=== PATIENT | male | born 1945 | race Caucasian/White ===

== ENCOUNTER 2017-04-11 23:21 | Emergency (ER) | payer SELFPAY, BC | END 2017-04-12 03:01 | disposition left against medical advice (07) | LOC: FTE 23:21 | DX: Z53.21 Procedure and treatment not carried out due to patient leaving prior to being seen by health care provider (principal) ==

== ENCOUNTER 2017-09-14 20:09 | Emergency (ER) | payer BC ==
[2017-09-14] MEDS: morphine 4 MG/ML VIAL IV (21:14)
[2017-09-14] MEDS: ONDANSETRON 4 MG INJ IV (21:14)
[2017-09-14 21:20] LABS: ADD MAN DIFF? NO
[2017-09-14 21:22] LABS: BASOPHIL # 0.1 10^3/ul (0.0-0.1); BASOPHILS % 1.2 % (0.0-2.0); EOSINOPHILS # 0.3 10^3/ul (0.0-0.5); EOSINOPHILS % 4.4 % (0.0-7.0); HEMATOCRIT 33.8 % (42.0-52.0); HEMOGLOBIN 10.5 g/dl (14.0-18.0); LYMPHOCYTES # 1.1 10^3/ul (0.8-2.9); LYMPHOCYTES % 16.8 % (15.0-51.0); MEAN CORPUSCULAR HEMOGLOBIN 31.8 pg (29.0-33.0); MEAN CORPUSCULAR HGB CONC 31.1 g/dl (32.0-37.0); MEAN CORPUSCULAR VOLUME 102.4 fl (82.0-101.0); MEAN PLATELET VOLUME 10.2 fl (7.4-10.4); MONOCYTE # 0.7 10^3/ul (0.3-0.9); MONOCYTES % 10.4 % (0.0-11.0); NEUTROPHIL # 4.3 10^3/ul (1.6-7.5); NEUTROPHILS % 66.7 % (39.0-77.0); PLATELET COUNT 187 10^3/UL (140-415)
[2017-09-14 21:22] LABS: WHITE BLOOD COUNT 6.4 10^3/ul (4.8-10.8)
[2017-09-14 22:17] LABS: ALANINE AMINOTRANSFERASE 25 IU/L (13-69); ALBUMIN 3.9 g/dl (3.3-4.9); ALBUMIN/GLOBULIN RATIO 0.81; ALKALINE PHOSPHATASE 274 IU/L (42-121); ANION GAP 18 (8-16); ASPARTATE AMINO TRANSFERASE 26 IU/L (15-46); BILIRUBIN,INDIRECT 0.2 mg/dl (0-1.1); BILIRUBIN,TOTAL 0.2 mg/dl (0.2-1.3); BLOOD UREA NITROGEN 51 mg/dl (7-20); CALCIUM 9.4 mg/dl (8.4-10.2); CARBON DIOXIDE 34 mmol/L (21-31); CHLORIDE 92 mmol/L (97-110); CREATININE 5.82 mg/dl (0.61-1.24); GLUCOSE 129 mg/dl (70-220); POTASSIUM 4.8 mmol/L (3.5-5.1); SODIUM 139 mmol/L (135-144); TOTAL PROTEIN 8.7 g/dl (6.1-8.1)
== END 2017-09-14 23:44 | disposition home or self-care (01) ==
LOC: E/R 20:09
DX: I12.9 Hypertensive chronic kidney disease with stage 1 through stage 4 chronic kidney disease, or unspecified chronic kidney disease (principal); N18.9 Chronic kidney disease, unspecified; K40.90 Unilateral inguinal hernia, without obstruction or gangrene, not specified as recurrent; N50.89 Other specified disorders of the male genital organs; R18.8 Other ascites; Z99.2 Dependence on renal dialysis
CPT/HCPCS: 36415; 74176; 76870; 80053; 85025; 96374; 96375; 99285-25

== ENCOUNTER 2017-10-14 20:08 | Inpatient (IN) | payer BC ==
[2017-10-14] MEDS: SOD CHLORIDE 0.9% 500 ML IV (21:28)
[2017-10-14] MEDS: morphine 4 MG/ML VIAL IV (21:29)
[2017-10-14] MEDS: ONDANSETRON 4 MG INJ IV (21:29)
[2017-10-14 21:30] LABS: ADD MAN DIFF? NO
[2017-10-14 21:32] LABS: BASOPHIL # 0.1 10^3/ul (0.0-0.1); BASOPHILS % 1.3 % (0.0-2.0); EOSINOPHILS # 0.2 10^3/ul (0.0-0.5); HEMATOCRIT 35.7 % (42.0-52.0); HEMOGLOBIN 11.3 g/dl (14.0-18.0); LYMPHOCYTES # 0.8 10^3/ul (0.8-2.9); MEAN CORPUSCULAR HEMOGLOBIN 32.7 pg (29.0-33.0); MEAN CORPUSCULAR HGB CONC 31.7 g/dl (32.0-37.0); MEAN CORPUSCULAR VOLUME 103.2 fl (82.0-101.0); MEAN PLATELET VOLUME 9.5 fl (7.4-10.4); MONOCYTE # 0.6 10^3/ul (0.3-0.9); MONOCYTES % 12.4 % (0.0-11.0); NEUTROPHIL # 3.1 10^3/ul (1.6-7.5); NEUTROPHILS % 65.1 % (39.0-77.0); PLATELET COUNT 161 10^3/UL (140-415); RED BLOOD COUNT 3.46 10^6/ul (4.70-6.10); RED CELL DISTRIBUTION WIDTH 16.9 % (11.5-14.5)
[2017-10-14 21:32] LABS: WHITE BLOOD COUNT 4.8 10^3/ul (4.8-10.8)
[2017-10-14 21:52] LABS: ALANINE AMINOTRANSFERASE 28 IU/L (13-69); ALBUMIN 4.2 g/dl (3.3-4.9); ALBUMIN/GLOBULIN RATIO 0.89; ALKALINE PHOSPHATASE 245 IU/L (42-121); ANION GAP 22 (8-16); ASPARTATE AMINO TRANSFERASE 34 IU/L (15-46); BILIRUBIN,INDIRECT 0.4 mg/dl (0-1.1); BILIRUBIN,TOTAL 0.4 mg/dl (0.2-1.3); BLOOD UREA NITROGEN 40 mg/dl (7-20); CARBON DIOXIDE 32 mmol/L (21-31); CHLORIDE 93 mmol/L (97-110); CREATININE 4.66 mg/dl (0.61-1.24); GLUCOSE 98 mg/dl (70-220); LIPASE 94 U/L (23-300); POTASSIUM 4.3 mmol/L (3.5-5.1); SODIUM 143 mmol/L (135-144); TOTAL PROTEIN 8.9 g/dl (6.1-8.1)
[2017-10-15] MEDS: LACTULOSE 30ML CUP PO (00:36)
[2017-10-15] MEDS: morphine 4 MG/ML VIAL IV (00:37)
[2017-10-15] MEDS: SOD CHLORIDE 0.9% 1,000 ML IV (00:37)
[2017-10-15] MEDS: POLYETHYLENE GLYCOL 17 GM PACKET PO ×3 (00:54→23:29)
[2017-10-15] MEDS ORDERED: NACL 0.9% 3 ML SYG IV (01:30)
[2017-10-15] MEDS ORDERED: METOCLOPRAMIDE 10 MG INJ IV (01:30)
[2017-10-15] MEDS ORDERED: ACETAMINOPHEN 325 MG TAB PO (01:30)
[2017-10-15] MEDS: LACTULOSE ENEMA 1,000 ML BTL PR ×2 (02:00→06:17)
[2017-10-15] MEDS: ALBUMIN HUMAN 25% 100 ML IV ×3 (02:30→06:17)
[2017-10-15] MEDS: morphine 2 MG INJ IV ×5 (04:18→23:26)
[2017-10-15 06:01] LABS: ADD MAN DIFF? NO
[2017-10-15 06:04] LABS: BASOPHIL # 0.1 10^3/ul (0.0-0.1); BASOPHILS % 1.4 % (0.0-2.0); EOSINOPHILS # 0.2 10^3/ul (0.0-0.5); EOSINOPHILS % 3.8 % (0.0-7.0); HEMATOCRIT 36.1 % (42.0-52.0); HEMOGLOBIN 11.2 g/dl (14.0-18.0); LYMPHOCYTES # 1.1 10^3/ul (0.8-2.9); LYMPHOCYTES % 21.9 % (15.0-51.0); MEAN CORPUSCULAR HEMOGLOBIN 32.2 pg (29.0-33.0); MEAN CORPUSCULAR VOLUME 103.7 fl (82.0-101.0); MEAN PLATELET VOLUME 10.2 fl (7.4-10.4); MONOCYTE # 0.7 10^3/ul (0.3-0.9); MONOCYTES % 13.7 % (0.0-11.0); NEUTROPHIL # 2.9 10^3/ul (1.6-7.5); NEUTROPHILS % 58.8 % (39.0-77.0); PLATELET COUNT 151 10^3/UL (140-415); RED BLOOD COUNT 3.48 10^6/ul (4.70-6.10); RED CELL DISTRIBUTION WIDTH 16.9 % (11.5-14.5)
[2017-10-15 06:34] LABS: ALANINE AMINOTRANSFERASE 22 IU/L (13-69); ALKALINE PHOSPHATASE 199 IU/L (42-121); ANION GAP 18 (8-16); ASPARTATE AMINO TRANSFERASE 21 IU/L (15-46); BILIRUBIN,INDIRECT 0.2 mg/dl (0-1.1); BILIRUBIN,TOTAL 0.3 mg/dl (0.2-1.3); BLOOD UREA NITROGEN 43 mg/dl (7-20); CALCIUM 8.9 mg/dl (8.4-10.2); CARBON DIOXIDE 33 mmol/L (21-31); CHLORIDE 96 mmol/L (97-110); CREATININE 4.93 mg/dl (0.61-1.24); GLUCOSE 85 mg/dl (70-220); MAGNESIUM 2.1 mg/dl (1.7-2.5); POTASSIUM 4.4 mmol/L (3.5-5.1); SODIUM 143 mmol/L (135-144)
[2017-10-15 06:37] LABS: LACTIC ACID 1.3 mmol/L (0.5-2.0)
[2017-10-15 06:47] LABS: AMMONIA 12 umol/l (9-30)
[2017-10-15 07:21] LABS: HEPATITIS C VIRAL ANTIBODY REACTIVE (NEGATIVE)
[2017-10-15] MEDS: DOCUSATE SODIUM 100 MG CAP PO ×2 (09:00→23:29)
[2017-10-15] MEDS: VITAMIN B COMPLEX/VIT C CAP PO (09:00)
[2017-10-15] MEDS: MULTIVIT/CA CARB/B CMPLX/FA TAB PO (09:00)
[2017-10-15 10:07] LABS: INR 1.23; PROTIME 15.7 Sec (11.9-14.9); PT RATIO 1.2
[2017-10-15 10:08] LABS: PARTIAL THROMBOPLASTIN TIME 38.2 Sec (25.0-35.0)
[2017-10-15] MEDS: LIDOCAINE 1% (MDV) 10 ML INJ ×2 (12:43→12:44)
[2017-10-15 13:13] LABS: HEMOGLOBIN A1C 4.8 % (0-5.9)
[2017-10-15 17:15] LABS: HEPATITIS B SURFACE ANTIGEN NEGATIVE (NEGATIVE)
[2017-10-15 17:32] LABS: HEPATITIS B SURFACE ANTIBODY POSITIVE (NEGATIVE)
[2017-10-16 05:11] LABS: ADD MAN DIFF? NO
[2017-10-16 05:19] LABS: WHITE BLOOD COUNT 5.3 10^3/ul (4.8-10.8)
[2017-10-16 05:19] LABS: BASOPHIL # 0.1 10^3/ul (0.0-0.1); BASOPHILS % 1.1 % (0.0-2.0); EOSINOPHILS # 0.2 10^3/ul (0.0-0.5); HEMATOCRIT 38.9 % (42.0-52.0); LYMPHOCYTES # 0.8 10^3/ul (0.8-2.9); LYMPHOCYTES % 15.9 % (15.0-51.0); MEAN CORPUSCULAR HEMOGLOBIN 31.7 pg (29.0-33.0); MEAN CORPUSCULAR HGB CONC 30.8 g/dl (32.0-37.0); MEAN CORPUSCULAR VOLUME 102.6 fl (82.0-101.0); MONOCYTE # 0.7 10^3/ul (0.3-0.9); MONOCYTES % 12.5 % (0.0-11.0); NEUTROPHIL # 3.5 10^3/ul (1.6-7.5); NEUTROPHILS % 66.3 % (39.0-77.0); PLATELET COUNT 150 10^3/UL (140-415); RED BLOOD COUNT 3.79 10^6/ul (4.70-6.10); RED CELL DISTRIBUTION WIDTH 16.6 % (11.5-14.5)
[2017-10-16 05:29] LABS: AMMONIA < 9 umol/l (9-30)
[2017-10-16 05:34] LABS: PHOSPHORUS 4.1 mg/dl (2.5-4.9)
[2017-10-16 05:34] LABS: MAGNESIUM 2.1 mg/dl (1.7-2.5)
[2017-10-16 05:43] LABS: ALANINE AMINOTRANSFERASE 23 IU/L (13-69); ALBUMIN 4.2 g/dl (3.3-4.9); ALBUMIN/GLOBULIN RATIO 0.97; ALKALINE PHOSPHATASE 191 IU/L (42-121); ANION GAP 17 (8-16); ASPARTATE AMINO TRANSFERASE 24 IU/L (15-46); BILIRUBIN,INDIRECT 0.2 mg/dl (0-1.1); BILIRUBIN,TOTAL 0.2 mg/dl (0.2-1.3); BLOOD UREA NITROGEN 31 mg/dl (7-20); CALCIUM 9.3 mg/dl (8.4-10.2); CARBON DIOXIDE 33 mmol/L (21-31); CHLORIDE 99 mmol/L (97-110); CREATININE 4.14 mg/dl (0.61-1.24); GLUCOSE 115 mg/dl (70-220); POTASSIUM 4.7 mmol/L (3.5-5.1); SODIUM 144 mmol/L (135-144); TOTAL PROTEIN 8.5 g/dl (6.1-8.1)
[2017-10-16] MEDS: morphine 2 MG INJ IV ×2 (07:16→13:20)
[2017-10-16] MEDS: MULTIVIT/CA CARB/B CMPLX/FA TAB PO (08:14)
[2017-10-16] MEDS: DOCUSATE SODIUM 100 MG CAP PO ×2 (08:14→20:53)
[2017-10-16] MEDS: LOSARTAN 50 MG TAB PO (08:14)
[2017-10-16] MEDS: POLYETHYLENE GLYCOL 17 GM PACKET PO ×2 (08:14→20:54)
[2017-10-16] MEDS: VITAMIN B COMPLEX/VIT C CAP PO (08:14)
[2017-10-16] MEDS: traMADol 50 MG TAB PO ×2 (10:50→20:52)
[2017-10-16] MEDS: EPOETIN 10000 UNITS/1 ML INJ (ESRD) SC (17:00)
[2017-10-16] MEDS: BISACODYL (EC) 5 MG TAB PO (18:10)
[2017-10-16] MEDS: morphine LIQ (10 MG/5 ML) CUP PO (18:10)
[2017-10-16] MEDS: METOPROLOL 25 MG TAB PO (20:55)
[2017-10-17 01:18] LABS: CREATINE KINASE 116 IU/L (23-200)
[2017-10-17] MEDS: DOCUSATE SODIUM 100 MG CAP PO ×3 (01:29→20:16)
[2017-10-17 01:31] LABS: TROPONIN-I 0.049 ng/ml (0.000-0.120)
[2017-10-17] MEDS: morphine LIQ (10 MG/5 ML) CUP PO ×4 (01:45→22:36)
[2017-10-17 01:47] LABS: CK INDEX 2.6; CK-MB 3.05 ng/ml (0.0-2.4)
[2017-10-17 05:47] LABS: ADD MAN DIFF? NO
[2017-10-17 05:54] LABS: BASOPHIL # 0.1 10^3/ul (0.0-0.1); BASOPHILS % 1.5 % (0.0-2.0); EOSINOPHILS # 0.3 10^3/ul (0.0-0.5); EOSINOPHILS % 6.3 % (0.0-7.0); HEMATOCRIT 38.9 % (42.0-52.0); HEMOGLOBIN 12.1 g/dl (14.0-18.0); LYMPHOCYTES % 18.9 % (15.0-51.0); MEAN CORPUSCULAR HEMOGLOBIN 32.3 pg (29.0-33.0); MEAN CORPUSCULAR HGB CONC 31.1 g/dl (32.0-37.0); MEAN CORPUSCULAR VOLUME 103.7 fl (82.0-101.0); MEAN PLATELET VOLUME 10.3 fl (7.4-10.4); MONOCYTE # 0.6 10^3/ul (0.3-0.9); NEUTROPHIL # 3.4 10^3/ul (1.6-7.5); NEUTROPHILS % 61.9 % (39.0-77.0); PLATELET COUNT 154 10^3/UL (140-415); RED BLOOD COUNT 3.75 10^6/ul (4.70-6.10); RED CELL DISTRIBUTION WIDTH 16.4 % (11.5-14.5)
[2017-10-17 05:54] LABS: WHITE BLOOD COUNT 5.4 10^3/ul (4.8-10.8)
[2017-10-17 06:08] LABS: CREATINE KINASE 131 IU/L (23-200)
[2017-10-17 06:21] LABS: CK INDEX 2.7; CK-MB 3.59 ng/ml (0.0-2.4); TROPONIN-I 0.044 ng/ml (0.000-0.120)
[2017-10-17 06:28] LABS: ANION GAP 24 (8-16); BLOOD UREA NITROGEN 46 mg/dl (7-20); CALCIUM 9.1 mg/dl (8.4-10.2); CARBON DIOXIDE 31 mmol/L (21-31); CHLORIDE 94 mmol/L (97-110); CREATININE 5.19 mg/dl (0.61-1.24); GLUCOSE 82 mg/dl (70-220); POTASSIUM 5.7 mmol/L (3.5-5.1); SODIUM 143 mmol/L (135-144)
[2017-10-17 06:30] LABS: PHOSPHORUS 5.6 mg/dl (2.5-4.9)
[2017-10-17 06:30] LABS: MAGNESIUM 2.2 mg/dl (1.7-2.5)
[2017-10-17 06:44] LABS: CHOLESTEROL 123 mg/dl (100-200)
[2017-10-17 06:44] LABS: CHOL/HDL RATIO 4.1 RATIO; HDL CHOLESTEROL 30 mg/dl (31-75); LDL CHOLESTEROL,CALCULATED 77 mg/dl; TRIGLYCERIDES 80 mg/dl (0-149)
[2017-10-17] MEDS: traMADol 50 MG TAB PO (07:05)
[2017-10-17] MEDS: MULTIVIT/CA CARB/B CMPLX/FA TAB PO (12:21)
[2017-10-17] MEDS: POLYETHYLENE GLYCOL 17 GM PACKET PO ×2 (12:21→20:16)
[2017-10-17] MEDS: VITAMIN B COMPLEX/VIT C CAP PO (12:21)
[2017-10-17] MEDS: METOPROLOL 25 MG TAB PO ×2 (12:22→20:16)
[2017-10-17 13:23] LABS: CREATINE KINASE 125 IU/L (23-200)
[2017-10-17 13:36] LABS: CK INDEX 2.7; CK-MB 3.34 ng/ml (0.0-2.4); TROPONIN-I 0.049 ng/ml (0.000-0.120)
[2017-10-17] MEDS: LIDOCAINE 1% (MDV) 10 ML INJ (13:52)
[2017-10-17] MEDS: AMLODIPINE 5 MG TAB PO (17:02)
[2017-10-17] MEDS: LACTULOSE 30ML CUP PO (20:16)
[2017-10-18 05:26] LABS: ADD MAN DIFF? NO; BASOPHIL # 0.1 10^3/ul (0.0-0.1); EOSINOPHILS # 0.2 10^3/ul (0.0-0.5); EOSINOPHILS % 3.9 % (0.0-7.0); HEMATOCRIT 35.7 % (42.0-52.0); HEMOGLOBIN 11.2 g/dl (14.0-18.0); MEAN CORPUSCULAR HEMOGLOBIN 32.5 pg (29.0-33.0); MEAN CORPUSCULAR HGB CONC 31.4 g/dl (32.0-37.0); MEAN CORPUSCULAR VOLUME 103.5 fl (82.0-101.0); MONOCYTE # 0.7 10^3/ul (0.3-0.9); MONOCYTES % 11.6 % (0.0-11.0); NEUTROPHIL # 3.9 10^3/ul (1.6-7.5); NEUTROPHILS % 66.2 % (39.0-77.0); PLATELET COUNT 160 10^3/UL (140-415); RED BLOOD COUNT 3.45 10^6/ul (4.70-6.10); RED CELL DISTRIBUTION WIDTH 16.5 % (11.5-14.5)
[2017-10-18 05:26] LABS: WHITE BLOOD COUNT 5.9 10^3/ul (4.8-10.8)
[2017-10-18 05:40] LABS: PHOSPHORUS 5.2 mg/dl (2.5-4.9)
[2017-10-18 05:40] LABS: MAGNESIUM 2.2 mg/dl (1.7-2.5)
[2017-10-18 06:02] LABS: ANION GAP 21 (8-16); BLOOD UREA NITROGEN 31 mg/dl (7-20); CALCIUM 8.9 mg/dl (8.4-10.2); CARBON DIOXIDE 28 mmol/L (21-31); CHLORIDE 98 mmol/L (97-110); GLUCOSE 87 mg/dl (70-220); POTASSIUM 4.3 mmol/L (3.5-5.1); SODIUM 143 mmol/L (135-144)
[2017-10-18] MEDS: morphine LIQ (10 MG/5 ML) CUP PO ×4 (06:38→23:14)
[2017-10-18] MEDS: DOCUSATE SODIUM 100 MG CAP PO ×2 (08:10→20:13)
[2017-10-18] MEDS: POLYETHYLENE GLYCOL 17 GM PACKET PO ×2 (08:10→20:23)
[2017-10-18] MEDS: MULTIVIT/CA CARB/B CMPLX/FA TAB PO (08:10)
[2017-10-18] MEDS: AMLODIPINE 5 MG TAB PO (08:11)
[2017-10-18] MEDS: METOPROLOL 25 MG TAB PO ×2 (08:11→20:12)
[2017-10-18] MEDS: VITAMIN B COMPLEX/VIT C CAP PO (08:16)
[2017-10-18] MEDS: EPOETIN 10000 UNITS/1 ML INJ (ESRD) SC (17:00)
[2017-10-18] MEDS: traMADol 50 MG TAB PO (20:12)
[2017-10-19] MEDS: morphine LIQ (10 MG/5 ML) CUP PO ×3 (02:53→13:26)
[2017-10-19 05:52] LABS: ADD MAN DIFF? NO
[2017-10-19 05:54] LABS: BASOPHIL # 0.1 10^3/ul (0.0-0.1); BASOPHILS % 1.1 % (0.0-2.0); EOSINOPHILS # 0.3 10^3/ul (0.0-0.5); EOSINOPHILS % 5.7 % (0.0-7.0); HEMATOCRIT 36.5 % (42.0-52.0); HEMOGLOBIN 11.4 g/dl (14.0-18.0); LYMPHOCYTES % 19.8 % (15.0-51.0); MEAN CORPUSCULAR HEMOGLOBIN 32.8 pg (29.0-33.0); MEAN CORPUSCULAR HGB CONC 31.2 g/dl (32.0-37.0); MEAN CORPUSCULAR VOLUME 104.9 fl (82.0-101.0); MEAN PLATELET VOLUME 10.1 fl (7.4-10.4); MONOCYTE # 0.5 10^3/ul (0.3-0.9); MONOCYTES % 9.7 % (0.0-11.0); NEUTROPHIL # 3.3 10^3/ul (1.6-7.5); NEUTROPHILS % 63.3 % (39.0-77.0); PLATELET COUNT 161 10^3/UL (140-415); RED BLOOD COUNT 3.48 10^6/ul (4.70-6.10); RED CELL DISTRIBUTION WIDTH 16.6 % (11.5-14.5)
[2017-10-19 05:54] LABS: WHITE BLOOD COUNT 5.3 10^3/ul (4.8-10.8)
[2017-10-19 06:27] LABS: ANION GAP 22 (8-16); BLOOD UREA NITROGEN 41 mg/dl (7-20); CALCIUM 8.8 mg/dl (8.4-10.2); CARBON DIOXIDE 28 mmol/L (21-31); CHLORIDE 98 mmol/L (97-110); CREATININE 5.57 mg/dl (0.61-1.24); GLUCOSE 88 mg/dl (70-220); POTASSIUM 5.3 mmol/L (3.5-5.1); SODIUM 143 mmol/L (135-144)
[2017-10-19 06:29] LABS: PHOSPHORUS 6.4 mg/dl (2.5-4.9)
[2017-10-19 06:29] LABS: MAGNESIUM 2.3 mg/dl (1.7-2.5)
[2017-10-19] MEDS: POLYETHYLENE GLYCOL 17 GM PACKET PO (09:00)
[2017-10-19] MEDS: METOPROLOL 25 MG TAB PO (09:00)
[2017-10-19] MEDS: DOCUSATE SODIUM 100 MG CAP PO (09:23)
[2017-10-19] MEDS: VITAMIN B COMPLEX/VIT C CAP PO (09:23)
[2017-10-19] MEDS: MULTIVIT/CA CARB/B CMPLX/FA TAB PO (09:23)
[2017-10-19] MEDS: AMLODIPINE 5 MG TAB PO (09:24)
[2017-10-19] MEDS: LACTULOSE 30ML CUP PO (09:25)
== END 2017-10-19 17:15 | disposition home or self-care (01) | DRG 432 ==
LOC: E/R 20:08 → MS1 10-15 00:18
PROC: 0W9G3ZX Drainage of Peritoneal Cavity, Percutaneous Approach, Diagnostic (ICD-10-PCS; principal; 2017-10-15)
PROC: 5A1D70Z Performance of Urinary Filtration, Intermittent, Less than 6 Hours Per Day (ICD-10-PCS; 2017-10-15)
PROC: 0W9 Anatomical Regions, General, Drainage (ICD-10-PCS; 2017-10-17)
PROC: 5A1D70Z Performance of Urinary Filtration, Intermittent, Less than 6 Hours Per Day (ICD-10-PCS; 2017-10-17)
PROC: 5A1D70Z Performance of Urinary Filtration, Intermittent, Less than 6 Hours Per Day (ICD-10-PCS; 2017-10-19)
DX: K74.60 Unspecified cirrhosis of liver (principal); N18.6 End stage renal disease; K76.6 Portal hypertension; I13.2 Hypertensive heart and chronic kidney disease with heart failure and with stage 5 chronic kidney disease, or end stage renal disease; I50.40 Unspecified combined systolic (congestive) and diastolic (congestive) heart failure; B18.1 Chronic viral hepatitis B without delta-agent; R18.8 Other ascites; E11.22 Type 2 diabetes mellitus with diabetic chronic kidney disease; E87.5 Hyperkalemia; I48.0 Paroxysmal atrial fibrillation; E86.0 Dehydration; D63.1 Anemia in chronic kidney disease; B18.2 Chronic viral hepatitis C; K59.00 Constipation, unspecified; N43.3 Hydrocele, unspecified; Z99.2 Dependence on renal dialysis; Z79.4 Long term (current) use of insulin; Z87.891 Personal history of nicotine dependence
CPT/HCPCS: 36415; 71045; 74176; 76536; 76705; 76870; 80048; 80053; 80061; 82140; 82550; 82553; 83036; 83605; 83690; 83735; 84100; 84443; 84484; 85025; 85610; 85730; 86706; 86803; 87340; 87522; 90935; 93005; 93306; 96374; 96375; 99285-25

== ENCOUNTER 2017-10-22 16:40 | Emergency (ER) | payer BC ==
[2017-10-22 17:21] LABS: ADD MAN DIFF? NO
[2017-10-22 17:30] LABS: WHITE BLOOD COUNT 5.3 10^3/ul (4.8-10.8)
[2017-10-22 17:30] LABS: BASOPHIL # 0.1 10^3/ul (0.0-0.1); BASOPHILS % 0.9 % (0.0-2.0); EOSINOPHILS # 0.1 10^3/ul (0.0-0.5); EOSINOPHILS % 1.7 % (0.0-7.0); HEMATOCRIT 37.2 % (42.0-52.0); HEMOGLOBIN 11.7 g/dl (14.0-18.0); LYMPHOCYTES # 0.6 10^3/ul (0.8-2.9); LYMPHOCYTES % 11.9 % (15.0-51.0); MEAN CORPUSCULAR HEMOGLOBIN 31.2 pg (29.0-33.0); MEAN CORPUSCULAR HGB CONC 31.5 g/dl (32.0-37.0); MEAN CORPUSCULAR VOLUME 99.2 fl (82.0-101.0); MONOCYTE # 0.5 10^3/ul (0.3-0.9); MONOCYTES % 8.5 % (0.0-11.0); NEUTROPHIL # 4.1 10^3/ul (1.6-7.5); NEUTROPHILS % 76.6 % (39.0-77.0); PLATELET COUNT 168 10^3/UL (140-415); RED BLOOD COUNT 3.75 10^6/ul (4.70-6.10); RED CELL DISTRIBUTION WIDTH 16.6 % (11.5-14.5)
[2017-10-22 17:49] LABS: ANION GAP 21 (8-16); BLOOD UREA NITROGEN 38 mg/dl (7-20); CARBON DIOXIDE 31 mmol/L (21-31); CHLORIDE 92 mmol/L (97-110); CREATININE 4.24 mg/dl (0.61-1.24); GLUCOSE 113 mg/dl (70-220); POTASSIUM 3.7 mmol/L (3.5-5.1); SODIUM 140 mmol/L (135-144)
[2017-10-22 18:00] LABS: TROPONIN-I 0.023 ng/ml (0.000-0.120)
[2017-10-22] MEDS: SOD CHLORIDE 0.9% 500 ML IV (18:08)
[2017-10-22] MEDS: ONDANSETRON 4 MG INJ IV (18:55)
[2017-10-22] MEDS: HYDROmorphONE 1 MG/ML SYG IV (18:56)
[2017-10-22] MEDS: SOD CHLORIDE 0.9% 100 ML (21:34)
[2017-10-22] MEDS: IODIXANOL LOCM 100 ML BTL (21:34)
== END 2017-10-22 22:45 | disposition home or self-care (01) ==
LOC: E/R 16:40
DX: R53.1 Weakness (principal); J45.909 Unspecified asthma, uncomplicated; R40.2142 Coma scale, eyes open, spontaneous, at arrival to emergency department; R40.2252 Coma scale, best verbal response, oriented, at arrival to emergency department; R40.2362 Coma scale, best motor response, obeys commands, at arrival to emergency department; Z79.01 Long term (current) use of anticoagulants; Z79.82 Long term (current) use of aspirin; Z99.2 Dependence on renal dialysis
CPT/HCPCS: 36415; 71045; 74177; 80048; 84484; 85025; 93005; 96361; 96374; 96375; 99285-25

== ENCOUNTER 2017-11-26 17:58 | Inpatient (IN) | payer BC, OTHER ==
[2017-11-26] MEDS: NITROGLYCERIN (SL) 0.4 MG TAB SL ×3 (18:19→19:39)
[2017-11-26] MEDS: NITROGLYCERIN 2% 1 GM OINT PKT TD (18:19)
[2017-11-26 18:23] LABS: ADD MAN DIFF? NO
[2017-11-26 18:27] LABS: BASOPHIL # 0.1 10^3/ul (0.0-0.1); EOSINOPHILS # 0.3 10^3/ul (0.0-0.5); EOSINOPHILS % 5.2 % (0.0-7.0); HEMATOCRIT 34.1 % (42.0-52.0); HEMOGLOBIN 10.9 g/dl (14.0-18.0); LYMPHOCYTES # 0.9 10^3/ul (0.8-2.9); MEAN CORPUSCULAR VOLUME 103.3 fl (82.0-101.0); MEAN PLATELET VOLUME 9.7 fl (7.4-10.4); MONOCYTE # 0.6 10^3/ul (0.3-0.9); MONOCYTES % 11.7 % (0.0-11.0); NEUTROPHIL # 3.4 10^3/ul (1.6-7.5); NEUTROPHILS % 64.7 % (39.0-77.0); PLATELET COUNT 149 10^3/UL (140-415); RED CELL DISTRIBUTION WIDTH 16.6 % (11.5-14.5)
[2017-11-26 18:27] LABS: WHITE BLOOD COUNT 5.2 10^3/ul (4.8-10.8)
[2017-11-26 19:00] LABS: ANION GAP 17 (8-16); BLOOD UREA NITROGEN 25 mg/dl (7-20); CALCIUM 9.1 mg/dl (8.4-10.2); CARBON DIOXIDE 33 mmol/L (21-31); CHLORIDE 91 mmol/L (97-110); CREATININE 2.81 mg/dl (0.61-1.24); GLUCOSE 118 mg/dl (70-220); POTASSIUM 3.4 mmol/L (3.5-5.1); SODIUM 138 mmol/L (135-144)
[2017-11-26 19:11] LABS: TROPONIN-I 0.044 ng/ml (0.000-0.120)
[2017-11-26] MEDS ORDERED: ONDANSETRON 4 MG INJ IV (20:00)
[2017-11-26] MEDS ORDERED: ACETAMINOPHEN 325 MG TAB PO ×2 (20:00→20:30)
[2017-11-26] MEDS ORDERED: DOCUSATE SODIUM 100 MG CAP PO (20:30)
[2017-11-26] MEDS ORDERED: NACL 0.9% 3 ML SYG IV (20:30)
[2017-11-26] MEDS ORDERED: METOCLOPRAMIDE 10 MG INJ IV (20:30)
[2017-11-26] MEDS ORDERED: NITROGLYCERIN (SL) 0.4 MG TAB SL (20:30)
[2017-11-26] MEDS: morphine 2 MG INJ IV (21:27)
[2017-11-26] MEDS: POTASSIUM CHLORIDE (SR) 20 MEQ TAB PO (23:12)
[2017-11-27] MEDS: MENTHOL/METH SALICYLATE 30 GM OINT TOP ×4 (02:16→20:58)
[2017-11-27 02:18] LABS: CREATINE KINASE 102 IU/L (23-200)
[2017-11-27 02:31] LABS: CK INDEX 1.1; CK-MB 1.16 ng/ml (0.0-2.4); TROPONIN-I 0.048 ng/ml (0.000-0.120)
[2017-11-27] MEDS ORDERED: oxyCODONE 5 MG TAB PO (05:00)
[2017-11-27] MEDS ORDERED: traMADol 50 MG TAB PO (05:00)
[2017-11-27] MEDS ORDERED: NON-FORMULARY/PATIENT OWN MED (Tramadol HCl 50 MG) PO (05:00)
[2017-11-27] MEDS: morphine 2 MG INJ IV ×3 (05:00→16:57)
[2017-11-27 05:25] LABS: ADD MAN DIFF? NO
[2017-11-27 05:34] LABS: BASOPHIL # 0.1 10^3/ul (0.0-0.1); BASOPHILS % 0.8 % (0.0-2.0); EOSINOPHILS # 0.2 10^3/ul (0.0-0.5); HEMATOCRIT 34.4 % (42.0-52.0); LYMPHOCYTES # 1.3 10^3/ul (0.8-2.9); LYMPHOCYTES % 20.9 % (15.0-51.0); MEAN CORPUSCULAR HEMOGLOBIN 32.8 pg (29.0-33.0); MEAN CORPUSCULAR VOLUME 102.7 fl (82.0-101.0); MEAN PLATELET VOLUME 9.8 fl (7.4-10.4); MONOCYTE # 0.7 10^3/ul (0.3-0.9); NEUTROPHIL # 3.8 10^3/ul (1.6-7.5); PLATELET COUNT 164 10^3/UL (140-415); RED BLOOD COUNT 3.35 10^6/ul (4.70-6.10); RED CELL DISTRIBUTION WIDTH 16.6 % (11.5-14.5)
[2017-11-27 05:34] LABS: WHITE BLOOD COUNT 6.1 10^3/ul (4.8-10.8)
[2017-11-27] MEDS: PANTOPRAZOLE (EC) 40 MG TAB PO ×2 (05:50→17:51)
[2017-11-27] MEDS: FUROSEMIDE 40 MG TAB PO ×2 (05:51→17:51)
[2017-11-27] MEDS: NA POLYST SULFON 15 GM/60 ML BTL PO (05:52)
[2017-11-27 05:55] LABS: CREATINE KINASE 99 IU/L (23-200)
[2017-11-27 05:56] LABS: ALANINE AMINOTRANSFERASE 18 IU/L (13-69); ALBUMIN 4.1 g/dl (3.3-4.9); ALBUMIN/GLOBULIN RATIO 0.89; ALKALINE PHOSPHATASE 277 IU/L (42-121); ANION GAP 20 (8-16); ASPARTATE AMINO TRANSFERASE 25 IU/L (15-46); BILIRUBIN,INDIRECT 0.3 mg/dl (0-1.1); BILIRUBIN,TOTAL 0.3 mg/dl (0.2-1.3); BLOOD UREA NITROGEN 30 mg/dl (7-20); CALCIUM 9.4 mg/dl (8.4-10.2); CARBON DIOXIDE 32 mmol/L (21-31); CHLORIDE 92 mmol/L (97-110); CREATININE 3.68 mg/dl (0.61-1.24); GLUCOSE 85 mg/dl (70-220); POTASSIUM 4.1 mmol/L (3.5-5.1); SODIUM 140 mmol/L (135-144); TOTAL PROTEIN 8.7 g/dl (6.1-8.1)
[2017-11-27 06:01] LABS: CK INDEX 1.2; CK-MB 1.21 ng/ml (0.0-2.4); TROPONIN-I 0.052 ng/ml (0.000-0.120)
[2017-11-27] MEDS: CALCIUM ACETATE 667 MG CAP PO ×3 (07:40→17:51)
[2017-11-27 08:08] LABS: INR 1.12; PROTIME 14.6 Sec (11.9-14.9); PT RATIO 1.1
[2017-11-27] MEDS: MINOXIDIL 10 MG TAB PO ×2 (08:13→20:57)
[2017-11-27] MEDS: DOCUSATE SODIUM 100 MG CAP PO ×2 (08:13→20:57)
[2017-11-27] MEDS: AMLODIPINE 5 MG TAB PO (08:13)
[2017-11-27] MEDS: METOPROLOL 25 MG TAB PO ×2 (08:13→20:57)
[2017-11-27] MEDS: ASPIRIN (EC) 81 MG TAB PO (08:13)
[2017-11-27] MEDS: MIDODRINE 5 MG TAB PO (08:14)
[2017-11-27] MEDS: ISOSORBIDE DINITRATE 10 MG TAB PO ×4 (08:14→20:58)
[2017-11-27] MEDS ORDERED: NON-FORMULARY/PATIENT OWN MED (Esomeprazole Mag Trihydrate (Nexium) 20 MG) PO (09:00)
[2017-11-27 09:32] LABS: HEPATITIS B SURFACE ANTIGEN NEGATIVE (NEGATIVE)
[2017-11-27] MEDS: LIDOCAINE 1% (MPF) 5 ML VIAL (16:18)
[2017-11-27] MEDS ORDERED: WARFARIN 2 MG TAB PO (17:00)
[2017-11-27] MEDS ORDERED: WARFARIN 10 MG TAB PO (17:00)
[2017-11-27] MEDS: MULTIVIT/CA CARB/B CMPLX/FA TAB PO (20:57)
[2017-11-27] MEDS ORDERED: NON-FORMULARY/PATIENT OWN MED ([Nephro-Vite] 1 TAB) PO (21:00)
[2017-11-28] MEDS: PANTOPRAZOLE (EC) 40 MG TAB PO ×2 (06:19→17:58)
[2017-11-28] MEDS: FUROSEMIDE 40 MG TAB PO ×2 (06:19→17:58)
[2017-11-28 06:24] LABS: ADD MAN DIFF? NO
[2017-11-28] MEDS: morphine 2 MG INJ IV (06:31)
[2017-11-28 06:34] LABS: BASOPHILS % 0.7 % (0.0-2.0); EOSINOPHILS # 0.2 10^3/ul (0.0-0.5); EOSINOPHILS % 4.1 % (0.0-7.0); HEMATOCRIT 33.8 % (42.0-52.0); HEMOGLOBIN 10.9 g/dl (14.0-18.0); LYMPHOCYTES # 0.9 10^3/ul (0.8-2.9); LYMPHOCYTES % 17.2 % (15.0-51.0); MEAN CORPUSCULAR HEMOGLOBIN 33.7 pg (29.0-33.0); MEAN CORPUSCULAR HGB CONC 32.2 g/dl (32.0-37.0); MEAN CORPUSCULAR VOLUME 104.6 fl (82.0-101.0); MEAN PLATELET VOLUME 9.9 fl (7.4-10.4); MONOCYTE # 0.6 10^3/ul (0.3-0.9); MONOCYTES % 11.2 % (0.0-11.0); NEUTROPHIL # 3.5 10^3/ul (1.6-7.5); NEUTROPHILS % 66.4 % (39.0-77.0); PLATELET COUNT 160 10^3/UL (140-415); RED BLOOD COUNT 3.23 10^6/ul (4.70-6.10); RED CELL DISTRIBUTION WIDTH 16.1 % (11.5-14.5)
[2017-11-28 06:34] LABS: WHITE BLOOD COUNT 5.3 10^3/ul (4.8-10.8)
[2017-11-28 06:47] LABS: INR 1.15; PROTIME 14.9 Sec (11.9-14.9); PT RATIO 1.2
[2017-11-28 07:11] LABS: CK-MB 1.54 ng/ml (0.0-2.4)
[2017-11-28 07:12] LABS: CHOLESTEROL 138 mg/dl (100-200)
[2017-11-28 07:12] LABS: CHOL/HDL RATIO 4.6 RATIO; CK INDEX 1.9; CREATINE KINASE 83 IU/L (23-200); HDL CHOLESTEROL 30 mg/dl (31-75); LDL CHOLESTEROL,CALCULATED 87 mg/dl; TRIGLYCERIDES 107 mg/dl (0-149)
[2017-11-28 07:20] LABS: ANION GAP 19 (8-16); BLOOD UREA NITROGEN 44 mg/dl (7-20); CARBON DIOXIDE 34 mmol/L (21-31); CHLORIDE 90 mmol/L (97-110); CREATININE 4.79 mg/dl (0.61-1.24); GLUCOSE 84 mg/dl (70-220); MAGNESIUM 2.1 mg/dl (1.7-2.5); PHOSPHORUS 5.3 mg/dl (2.5-4.9); POTASSIUM 5.1 mmol/L (3.5-5.1); SODIUM 138 mmol/L (135-144)
[2017-11-28 07:24] LABS: TROPONIN-I 0.033 ng/ml (0.000-0.120)
[2017-11-28] MEDS: AMLODIPINE 5 MG TAB PO (09:00)
[2017-11-28] MEDS: MINOXIDIL 10 MG TAB PO ×2 (09:00→20:32)
[2017-11-28] MEDS: METOPROLOL 25 MG TAB PO ×2 (09:00→20:33)
[2017-11-28] MEDS: ISOSORBIDE DINITRATE 10 MG TAB PO ×3 (09:00→20:32)
[2017-11-28] MEDS: DOCUSATE SODIUM 100 MG CAP PO ×2 (09:08→20:30)
[2017-11-28] MEDS: CALCIUM ACETATE 667 MG CAP PO ×3 (09:08→17:57)
[2017-11-28] MEDS: ASPIRIN (EC) 81 MG TAB PO (09:08)
[2017-11-28] MEDS: MENTHOL/METH SALICYLATE 30 GM OINT TOP ×3 (09:18→20:34)
[2017-11-28] MEDS: ENOXAPARIN 60 MG/0.6 ML SYG SC (09:22)
[2017-11-28] MEDS: morphine 4 MG/ML VIAL IV (11:54)
[2017-11-28] MEDS: BISACODYL (EC) 5 MG TAB PO (13:03)
[2017-11-28] MEDS: EPOETIN 10000 UNITS/1 ML INJ (ESRD) SC (17:57)
[2017-11-28] MEDS: MULTIVIT/CA CARB/B CMPLX/FA TAB PO (20:30)
[2017-11-28] MEDS: HEPARIN 5,000 UNIT/0.5 ML VIAL SC (22:00)
[2017-11-29 06:00] LABS: ADD MAN DIFF? NO
[2017-11-29 06:22] LABS: WHITE BLOOD COUNT 5.5 10^3/ul (4.8-10.8)
[2017-11-29 06:22] LABS: BASOPHIL # 0.1 10^3/ul (0.0-0.1); BASOPHILS % 0.9 % (0.0-2.0); EOSINOPHILS # 0.2 10^3/ul (0.0-0.5); EOSINOPHILS % 3.7 % (0.0-7.0); HEMATOCRIT 35.2 % (42.0-52.0); HEMOGLOBIN 11.2 g/dl (14.0-18.0); LYMPHOCYTES # 0.8 10^3/ul (0.8-2.9); LYMPHOCYTES % 13.7 % (15.0-51.0); MEAN CORPUSCULAR HEMOGLOBIN 32.7 pg (29.0-33.0); MEAN CORPUSCULAR HGB CONC 31.8 g/dl (32.0-37.0); MEAN CORPUSCULAR VOLUME 102.9 fl (82.0-101.0); MONOCYTE # 0.5 10^3/ul (0.3-0.9); MONOCYTES % 9.9 % (0.0-11.0); NEUTROPHIL # 3.9 10^3/ul (1.6-7.5); NEUTROPHILS % 71.6 % (39.0-77.0); PLATELET COUNT 150 10^3/UL (140-415); RED BLOOD COUNT 3.42 10^6/ul (4.70-6.10); RED CELL DISTRIBUTION WIDTH 16.3 % (11.5-14.5)
[2017-11-29 06:27] LABS: INR 1.17; PROTIME 15.1 Sec (11.9-14.9); PT RATIO 1.2
[2017-11-29] MEDS: PANTOPRAZOLE (EC) 40 MG TAB PO ×2 (06:31→17:48)
[2017-11-29] MEDS: FUROSEMIDE 40 MG TAB PO ×2 (06:31→17:50)
[2017-11-29] MEDS: HEPARIN 5,000 UNIT/0.5 ML VIAL SC ×3 (06:41→22:11)
[2017-11-29 06:45] LABS: ANION GAP 19 (8-16); BLOOD UREA NITROGEN 34 mg/dl (7-20); CALCIUM 9.1 mg/dl (8.4-10.2); CARBON DIOXIDE 33 mmol/L (21-31); CHLORIDE 91 mmol/L (97-110); CREATININE 4.16 mg/dl (0.61-1.24); GLUCOSE 103 mg/dl (70-220); MAGNESIUM 2.1 mg/dl (1.7-2.5); PHOSPHORUS 4.1 mg/dl (2.5-4.9); POTASSIUM 3.9 mmol/L (3.5-5.1); SODIUM 139 mmol/L (135-144)
[2017-11-29] MEDS: morphine 4 MG/ML VIAL IV ×3 (06:46→22:26)
[2017-11-29] MEDS: CALCIUM ACETATE 667 MG CAP PO ×3 (08:00→17:48)
[2017-11-29] MEDS: DOCUSATE SODIUM 100 MG CAP PO ×2 (08:23→22:05)
[2017-11-29] MEDS: ASPIRIN (EC) 81 MG TAB PO (08:23)
[2017-11-29] MEDS: MINOXIDIL 10 MG TAB PO ×2 (08:25→21:00)
[2017-11-29] MEDS: ISOSORBIDE DINITRATE 10 MG TAB PO ×3 (08:27→21:00)
[2017-11-29] MEDS: METOPROLOL 25 MG TAB PO ×2 (08:28→21:00)
[2017-11-29] MEDS: AMLODIPINE 5 MG TAB PO (08:28)
[2017-11-29] MEDS: MENTHOL/METH SALICYLATE 30 GM OINT TOP ×3 (09:00→21:00)
[2017-11-29] MEDS: REGADENOSON 0.4 MG/5 ML SYG (11:15)
[2017-11-29] MEDS ORDERED: DOCUSATE SODIUM 100 MG CAP PO (12:30)
[2017-11-29] MEDS: POLYETHYLENE GLYCOL 17 GM PACKET PO (13:47)
[2017-11-29] MEDS: MULTIVIT/CA CARB/B CMPLX/FA TAB PO (22:05)
[2017-11-30] MEDS: PANTOPRAZOLE (EC) 40 MG TAB PO (06:09)
[2017-11-30] MEDS: FUROSEMIDE 40 MG TAB PO (06:09)
[2017-11-30] MEDS: HEPARIN 5,000 UNIT/0.5 ML VIAL SC (06:14)
[2017-11-30 06:16] LABS: ADD MAN DIFF? NO
[2017-11-30 06:25] LABS: BASOPHILS % 0.6 % (0.0-2.0); EOSINOPHILS # 0.2 10^3/ul (0.0-0.5); EOSINOPHILS % 3.6 % (0.0-7.0); HEMATOCRIT 33.4 % (42.0-52.0); HEMOGLOBIN 10.6 g/dl (14.0-18.0); LYMPHOCYTES # 0.9 10^3/ul (0.8-2.9); LYMPHOCYTES % 17.7 % (15.0-51.0); MEAN CORPUSCULAR HEMOGLOBIN 33.3 pg (29.0-33.0); MEAN CORPUSCULAR HGB CONC 31.7 g/dl (32.0-37.0); MONOCYTE # 0.6 10^3/ul (0.3-0.9); MONOCYTES % 11.2 % (0.0-11.0); NEUTROPHIL # 3.3 10^3/ul (1.6-7.5); NEUTROPHILS % 66.5 % (39.0-77.0); PLATELET COUNT 153 10^3/UL (140-415); RED BLOOD COUNT 3.18 10^6/ul (4.70-6.10); RED CELL DISTRIBUTION WIDTH 16.5 % (11.5-14.5)
[2017-11-30 06:43] LABS: INR 1.15; PROTIME 14.9 Sec (11.9-14.9); PT RATIO 1.2
[2017-11-30 06:45] LABS: ALBUMIN 3.8 g/dl (3.3-4.9); ANION GAP 20 (8-16); BLOOD UREA NITROGEN 45 mg/dl (7-20); CALCIUM 9.2 mg/dl (8.4-10.2); CARBON DIOXIDE 31 mmol/L (21-31); CHLORIDE 92 mmol/L (97-110); CREATININE 5.72 mg/dl (0.61-1.24); GLUCOSE 83 mg/dl (70-220); MAGNESIUM 2.2 mg/dl (1.7-2.5); PHOSPHORUS 4.6 mg/dl (2.5-4.9); POTASSIUM 4.6 mmol/L (3.5-5.1); SODIUM 138 mmol/L (135-144)
[2017-11-30] MEDS: POLYETHYLENE GLYCOL 17 GM PACKET PO (08:05)
[2017-11-30] MEDS: CALCIUM ACETATE 667 MG CAP PO ×2 (08:05→11:38)
[2017-11-30] MEDS: ASPIRIN (EC) 81 MG TAB PO (08:06)
[2017-11-30] MEDS: DOCUSATE SODIUM 100 MG CAP PO (08:06)
[2017-11-30] MEDS: ISOSORBIDE DINITRATE 10 MG TAB PO (08:07)
[2017-11-30] MEDS: AMLODIPINE 5 MG TAB PO (08:08)
[2017-11-30] MEDS: MINOXIDIL 10 MG TAB PO (08:08)
[2017-11-30] MEDS: METOPROLOL 25 MG TAB PO (08:08)
[2017-11-30] MEDS: morphine 4 MG/ML VIAL IV (08:11)
== END 2017-11-30 12:29 | disposition home or self-care (01) | DRG 313 ==
LOC: E/R 17:58 → 6WM 11-27 10:45 → MS3 19:40
PROC: 0W9G3ZZ Drainage of Peritoneal Cavity, Percutaneous Approach (ICD-10-PCS; principal; 2017-11-27)
PROC: 5A1D70Z Performance of Urinary Filtration, Intermittent, Less than 6 Hours Per Day (ICD-10-PCS; 2017-11-29)
DX: R07.89 Other chest pain (principal); N18.6 End stage renal disease; I13.2 Hypertensive heart and chronic kidney disease with heart failure and with stage 5 chronic kidney disease, or end stage renal disease; I50.32 Chronic diastolic (congestive) heart failure; R18.8 Other ascites; I42.9 Cardiomyopathy, unspecified; R14.0 Abdominal distension (gaseous); I48.0 Paroxysmal atrial fibrillation; K74.60 Unspecified cirrhosis of liver; D63.1 Anemia in chronic kidney disease; E11.22 Type 2 diabetes mellitus with diabetic chronic kidney disease; I27.20 Pulmonary hypertension, unspecified; Z99.2 Dependence on renal dialysis; Z79.01 Long term (current) use of anticoagulants; Z79.82 Long term (current) use of aspirin
CPT/HCPCS: 36415; 71045; 78452; 80048; 80053; 80061; 80069; 82550; 82553; 83735; 84100; 84443; 84484; 85025; 85610; 87081; 87340; 90935; 93005; 93017; 99217; 99285-25; G0378

== ENCOUNTER 2017-12-12 21:23 | Inpatient (IN) | payer BC ==
[2017-12-12 21:35] LABS: ADD MAN DIFF? NO
[2017-12-12 22:09] LABS: BASOPHILS % 0.5 % (0.0-2.0); EOSINOPHILS # 0.1 10^3/ul (0.0-0.5); EOSINOPHILS % 2.2 % (0.0-7.0); HEMATOCRIT 33.4 % (42.0-52.0); HEMOGLOBIN 10.9 g/dl (14.0-18.0); LYMPHOCYTES # 0.9 10^3/ul (0.8-2.9); LYMPHOCYTES % 14.2 % (15.0-51.0); MEAN CORPUSCULAR HEMOGLOBIN 33.4 pg (29.0-33.0); MEAN CORPUSCULAR HGB CONC 32.6 g/dl (32.0-37.0); MEAN CORPUSCULAR VOLUME 102.5 fl (82.0-101.0); MEAN PLATELET VOLUME 9.8 fl (7.4-10.4); MONOCYTE # 0.8 10^3/ul (0.3-0.9); MONOCYTES % 12.7 % (0.0-11.0); NEUTROPHIL # 4.2 10^3/ul (1.6-7.5); NEUTROPHILS % 69.9 % (39.0-77.0); PLATELET COUNT 203 10^3/UL (140-415); RED BLOOD COUNT 3.26 10^6/ul (4.70-6.10); RED CELL DISTRIBUTION WIDTH 15.9 % (11.5-14.5)
[2017-12-12 22:26] LABS: ANION GAP 17 (8-16); BLOOD UREA NITROGEN 27 mg/dl (7-20); CALCIUM 9.2 mg/dl (8.4-10.2); CARBON DIOXIDE 35 mmol/L (21-31); CHLORIDE 87 mmol/L (97-110); CREATININE 3.49 mg/dl (0.61-1.24); GLUCOSE 133 mg/dl (70-220); POTASSIUM 3.7 mmol/L (3.5-5.1); SODIUM 135 mmol/L (135-144)
[2017-12-12 22:28] LABS: INR 1.09; PROTIME 14.3 Sec (11.9-14.9); PT RATIO 1.1
[2017-12-12 22:29] LABS: PARTIAL THROMBOPLASTIN TIME 42.4 Sec (25.0-35.0)
[2017-12-12] MEDS: METOPROLOL 5 MG INJ IV (22:30)
[2017-12-12 22:37] LABS: TROPONIN-I 0.028 ng/ml (0.000-0.120)
[2017-12-12] MEDS ORDERED: ACETAMINOPHEN 325 MG TAB PO (23:30)
[2017-12-13] MEDS: morphine 4 MG/ML VIAL IV ×3 (00:59→22:15)
[2017-12-13] MEDS: ONDANSETRON 4 MG INJ IV ×2 (00:59→16:56)
[2017-12-13] MEDS ORDERED: NACL 0.9% 3 ML SYG IV (01:30)
[2017-12-13] MEDS ORDERED: ACETAMINOPHEN 325 MG TAB PO (01:30)
[2017-12-13] MEDS ORDERED: NA POLYST SULFON 15 GM/60 ML BTL PO (01:30)
[2017-12-13] MEDS ORDERED: oxyCODONE 5 MG TAB PO (01:30)
[2017-12-13] MEDS ORDERED: NON-FORMULARY/PATIENT OWN MED (Tramadol HCl 50 MG) PO (01:30)
[2017-12-13] MEDS ORDERED: NITROGLYCERIN (SL) 0.4 MG TAB SL (01:30)
[2017-12-13] MEDS ORDERED: IBUPROFEN 400 MG TAB PO (01:30)
[2017-12-13] MEDS: METOPROLOL 25 MG TAB PO ×3 (02:01→20:50)
[2017-12-13] MEDS: POTASSIUM CHLORIDE (SR) 20 MEQ TAB PO (02:02)
[2017-12-13] MEDS: ENOXAPARIN 80 MG/0.8 ML SYG SC (02:05)
[2017-12-13 04:43] LABS: ADD MAN DIFF? NO
[2017-12-13 05:08] LABS: CREATINE KINASE 67 IU/L (23-200)
[2017-12-13 05:27] LABS: ALANINE AMINOTRANSFERASE 28 IU/L (13-69); ALBUMIN 3.7 g/dl (3.3-4.9); ALBUMIN/GLOBULIN RATIO 0.75; ALKALINE PHOSPHATASE 344 IU/L (42-121); ANION GAP 18 (8-16); ASPARTATE AMINO TRANSFERASE 40 IU/L (15-46); BILIRUBIN,INDIRECT 0.3 mg/dl (0-1.1); BILIRUBIN,TOTAL 0.3 mg/dl (0.2-1.3); BLOOD UREA NITROGEN 32 mg/dl (7-20); CALCIUM 8.9 mg/dl (8.4-10.2); CARBON DIOXIDE 34 mmol/L (21-31); CHLORIDE 87 mmol/L (97-110); CREATININE 3.86 mg/dl (0.61-1.24); GLUCOSE 85 mg/dl (70-220); POTASSIUM 4.1 mmol/L (3.5-5.1); SODIUM 135 mmol/L (135-144); TOTAL PROTEIN 8.6 g/dl (6.1-8.1)
[2017-12-13 05:34] LABS: CK INDEX 2.4; TROPONIN-I 0.046 ng/ml (0.000-0.120)
[2017-12-13] MEDS: PANTOPRAZOLE (EC) 40 MG TAB PO ×2 (05:43→17:03)
[2017-12-13 08:00] LABS: WHITE BLOOD COUNT 7.5 10^3/ul (4.8-10.8)
[2017-12-13 08:00] LABS: BASOPHIL # 0.1 10^3/ul (0.0-0.1); BASOPHILS % 0.7 % (0.0-2.0); EOSINOPHILS # 0.1 10^3/ul (0.0-0.5); EOSINOPHILS % 1.9 % (0.0-7.0); HEMATOCRIT 31.8 % (42.0-52.0); HEMOGLOBIN 10.2 g/dl (14.0-18.0); LYMPHOCYTES # 1.1 10^3/ul (0.8-2.9); LYMPHOCYTES % 14.1 % (15.0-51.0); MEAN CORPUSCULAR HEMOGLOBIN 33.6 pg (29.0-33.0); MEAN CORPUSCULAR HGB CONC 32.1 g/dl (32.0-37.0); MEAN CORPUSCULAR VOLUME 104.6 fl (82.0-101.0); MEAN PLATELET VOLUME 10.1 fl (7.4-10.4); MONOCYTES % 13.4 % (0.0-11.0); NEUTROPHIL # 5.2 10^3/ul (1.6-7.5); NEUTROPHILS % 69.6 % (39.0-77.0); PLATELET COUNT 198 10^3/UL (140-415); RED BLOOD COUNT 3.04 10^6/ul (4.70-6.10); RED CELL DISTRIBUTION WIDTH 15.9 % (11.5-14.5)
[2017-12-13] MEDS: VITAMIN B COMPLEX/VIT C CAP PO (08:41)
[2017-12-13] MEDS: LACTULOSE 30ML CUP PO ×2 (08:41→20:48)
[2017-12-13] MEDS: DOCUSATE SODIUM 100 MG CAP PO ×2 (08:41→20:48)
[2017-12-13] MEDS: CALCIUM ACETATE 667 MG CAP PO ×3 (08:41→17:03)
[2017-12-13] MEDS: ASPIRIN (EC) 81 MG TAB PO (08:42)
[2017-12-13] MEDS: MINOXIDIL 10 MG TAB PO ×2 (08:44→21:00)
[2017-12-13] MEDS: ISOSORBIDE DINITRATE 10 MG TAB PO ×4 (08:44→20:50)
[2017-12-13] MEDS: AMLODIPINE 5 MG TAB PO (08:44)
[2017-12-13] MEDS ORDERED: LACTULOSE 20 GM PO (09:00)
[2017-12-13] MEDS ORDERED: NON-FORMULARY/PATIENT OWN MED (Esomeprazole Mag Trihydrate (Nexium) 20 MG) PO (09:00)
[2017-12-13] MEDS ORDERED: MIDODRINE 5 MG TAB PO (09:00)
[2017-12-13 10:12] LABS: CREATINE KINASE 69 IU/L (23-200)
[2017-12-13 10:21] LABS: CK INDEX 2.1; CK-MB 1.47 ng/ml (0.0-2.4); TROPONIN-I 0.024 ng/ml (0.000-0.120)
[2017-12-13 16:11] LABS: HDL CHOLESTEROL 34 mg/dl (31-75); LDL CHOLESTEROL,CALCULATED 90 mg/dl; TRIGLYCERIDES 65 mg/dl (0-149)
[2017-12-13 16:11] LABS: CHOLESTEROL 137 mg/dl (100-200)
[2017-12-13 16:18] LABS: HEMOGLOBIN A1C 4.6 % (0-5.9)
[2017-12-13 16:42] LABS: B-TYPE NATRIURETIC PEPTIDE > 175000 PG/ML (0-125)
[2017-12-13] MEDS: APIXABAN 5 MG TABLET PO (20:48)
[2017-12-13] MEDS: traMADol 50 MG TAB PO (20:49)
[2017-12-13] MEDS: MULTIVIT/CA CARB/B CMPLX/FA TAB PO (20:50)
[2017-12-13] MEDS ORDERED: NON-FORMULARY/PATIENT OWN MED ([Nephro-Vite] 1 TAB) PO (21:00)
[2017-12-14] MEDS: morphine 4 MG/ML VIAL IV (05:42)
[2017-12-14] MEDS: PANTOPRAZOLE (EC) 40 MG TAB PO (05:57)
[2017-12-14 07:19] LABS: ANION GAP 19 (8-16); BLOOD UREA NITROGEN 47 mg/dl (7-20); CALCIUM 9.2 mg/dl (8.4-10.2); CARBON DIOXIDE 34 mmol/L (21-31); CHLORIDE 87 mmol/L (97-110); CREATININE 5.32 mg/dl (0.61-1.24); GLUCOSE 78 mg/dl (70-220); POTASSIUM 5.4 mmol/L (3.5-5.1); SODIUM 135 mmol/L (135-144)
[2017-12-14] MEDS: VITAMIN B COMPLEX/VIT C CAP PO (08:17)
[2017-12-14] MEDS: ASPIRIN (EC) 81 MG TAB PO (08:17)
[2017-12-14] MEDS: LACTULOSE 30ML CUP PO (08:17)
[2017-12-14] MEDS: CALCIUM ACETATE 667 MG CAP PO ×2 (08:18→12:08)
[2017-12-14] MEDS: ISOSORBIDE DINITRATE 10 MG TAB PO ×2 (08:18→13:00)
[2017-12-14] MEDS: DOCUSATE SODIUM 100 MG CAP PO (08:18)
[2017-12-14] MEDS: MINOXIDIL 10 MG TAB PO (08:18)
[2017-12-14] MEDS: APIXABAN 5 MG TABLET PO (08:18)
[2017-12-14] MEDS: AMLODIPINE 5 MG TAB PO (08:19)
[2017-12-14] MEDS: METOPROLOL 25 MG TAB PO (08:19)
[2017-12-14] MEDS: ALBUMIN HUMAN 25% 100 ML IV (12:06)
[2017-12-14] MEDS: traMADol 50 MG TAB PO (15:39)
== END 2017-12-14 16:45 | disposition home or self-care (01) | DRG 432 ==
LOC: E/R 21:23 → TEL 23:22
PROC: 0W9G3ZZ Drainage of Peritoneal Cavity, Percutaneous Approach (ICD-10-PCS; principal; 2017-12-13)
PROC: 5A1D70Z Performance of Urinary Filtration, Intermittent, Less than 6 Hours Per Day (ICD-10-PCS; 2017-12-14)
DX: K74.60 Unspecified cirrhosis of liver (principal); N18.6 End stage renal disease; I13.2 Hypertensive heart and chronic kidney disease with heart failure and with stage 5 chronic kidney disease, or end stage renal disease; E11.22 Type 2 diabetes mellitus with diabetic chronic kidney disease; E11.65 Type 2 diabetes mellitus with hyperglycemia; I27.20 Pulmonary hypertension, unspecified; I48.0 Paroxysmal atrial fibrillation; I50.9 Heart failure, unspecified; B18.2 Chronic viral hepatitis C; E78.5 Hyperlipidemia, unspecified; R07.89 Other chest pain; Z79.82 Long term (current) use of aspirin; Z79.4 Long term (current) use of insulin; Z79.84 Long term (current) use of oral hypoglycemic drugs; Z99.2 Dependence on renal dialysis
CPT/HCPCS: 36415; 71045; 80048; 80053; 80061; 82306; 82550; 82553; 82962; 83036; 83735; 83880; 84443; 84484; 85025; 85610; 85730; 87081; 90935; 93005; 96374; 99291-25

== ENCOUNTER 2018-08-17 17:41 | Emergency (ER) | payer SELFPAY, BC ==
[2018-08-17 19:18] LABS: ADD MAN DIFF? NO
[2018-08-17 19:20] LABS: BASOPHIL # 0.1 10^3/ul (0.0-0.1); BASOPHILS % 0.6 % (0.0-2.0); EOSINOPHILS # 0.2 10^3/ul (0.0-0.5); EOSINOPHILS % 2.3 % (0.0-7.0); HEMOGLOBIN 10.5 g/dl (14.0-18.0); LYMPHOCYTES # 0.8 10^3/ul (0.8-2.9); LYMPHOCYTES % 8.6 % (15.0-51.0); MEAN CORPUSCULAR HEMOGLOBIN 33.1 pg (29.0-33.0); MEAN CORPUSCULAR HGB CONC 31.8 g/dl (32.0-37.0); MEAN CORPUSCULAR VOLUME 104.1 fl (82.0-101.0); MEAN PLATELET VOLUME 8.6 fl (7.4-10.4); MONOCYTE # 0.7 10^3/ul (0.3-0.9); MONOCYTES % 8.2 % (0.0-11.0); NEUTROPHILS % 79.7 % (39.0-77.0); PLATELET COUNT 202 10^3/UL (140-415); RED BLOOD COUNT 3.17 10^6/ul (4.70-6.10); RED CELL DISTRIBUTION WIDTH 14.9 % (11.5-14.5)
[2018-08-17 19:20] LABS: WHITE BLOOD COUNT 8.8 10^3/ul (4.8-10.8)
[2018-08-17 19:40] LABS: ALANINE AMINOTRANSFERASE 20 IU/L (13-69); ALBUMIN 4.5 g/dl (3.3-4.9); ALBUMIN/GLOBULIN RATIO 0.78; ALKALINE PHOSPHATASE 430 IU/L (42-121); ANION GAP 15 (5-13); ASPARTATE AMINO TRANSFERASE 39 IU/L (15-46); BILIRUBIN,INDIRECT 0.2 mg/dl (0-1.1); BILIRUBIN,TOTAL 0.2 mg/dl (0.2-1.3); BLOOD UREA NITROGEN 29 mg/dl (7-20); CALCIUM 10.1 mg/dl (8.4-10.2); CARBON DIOXIDE 37 mmol/L (21-31); CHLORIDE 88 mmol/L (97-110); CREATININE 3.29 mg/dl (0.61-1.24); GLUCOSE 118 mg/dl (70-220); LIPASE 138 U/L (23-300); POTASSIUM 3.7 mmol/L (3.5-5.1); SODIUM 140 mmol/L (135-144); TOTAL PROTEIN 10.2 g/dl (6.1-8.1)
[2018-08-17] MEDS: morphine 2 MG INJ IV (22:23)
[2018-08-17] MEDS: ONDANSETRON 4 MG INJ IV (22:23)
== END 2018-08-17 23:29 | disposition home or self-care (01) ==
LOC: E/R 17:41
DX: K40.90 Unilateral inguinal hernia, without obstruction or gangrene, not specified as recurrent (principal); K80.20 Calculus of gallbladder without cholecystitis without obstruction; N50.1 Vascular disorders of male genital organs; D64.9 Anemia, unspecified; I12.0 Hypertensive chronic kidney disease with stage 5 chronic kidney disease or end stage renal disease; N18.6 End stage renal disease; I11.0 Hypertensive heart disease with heart failure; I50.9 Heart failure, unspecified; E11.9 Type 2 diabetes mellitus without complications; Z79.82 Long term (current) use of aspirin
CPT/HCPCS: 36415; 74176; 76870; 80053; 83690; 85025; 96374; 96375; 99285-25

== ENCOUNTER 2018-09-03 02:43 | Emergency (ER) | payer BC ==
[2018-09-03 04:20] LABS: ADD MAN DIFF? NO
[2018-09-03 04:23] LABS: WHITE BLOOD COUNT 6.4 10^3/ul (4.8-10.8)
[2018-09-03 04:23] LABS: BASOPHIL # 0.1 10^3/ul (0.0-0.1); BASOPHILS % 0.9 % (0.0-2.0); EOSINOPHILS # 0.2 10^3/ul (0.0-0.5); EOSINOPHILS % 2.7 % (0.0-7.0); HEMATOCRIT 29.5 % (42.0-52.0); HEMOGLOBIN 9.2 g/dl (14.0-18.0); LYMPHOCYTES % 15.8 % (15.0-51.0); MEAN CORPUSCULAR HGB CONC 31.2 g/dl (32.0-37.0); MEAN CORPUSCULAR VOLUME 105.7 fl (82.0-101.0); MEAN PLATELET VOLUME 9.5 fl (7.4-10.4); MONOCYTE # 0.8 10^3/ul (0.3-0.9); MONOCYTES % 12.8 % (0.0-11.0); NEUTROPHIL # 4.3 10^3/ul (1.6-7.5); NEUTROPHILS % 67.5 % (39.0-77.0); PLATELET COUNT 216 10^3/UL (140-415); RED BLOOD COUNT 2.79 10^6/ul (4.70-6.10)
[2018-09-03 04:41] LABS: ALANINE AMINOTRANSFERASE 12 IU/L (13-69); ALBUMIN/GLOBULIN RATIO 0.78; ALKALINE PHOSPHATASE 284 IU/L (42-121); ANION GAP 15 (5-13); ASPARTATE AMINO TRANSFERASE 35 IU/L (15-46); BILIRUBIN,INDIRECT 0.4 mg/dl (0-1.1); BILIRUBIN,TOTAL 0.4 mg/dl (0.2-1.3); BLOOD UREA NITROGEN 23 mg/dl (7-20); CARBON DIOXIDE 32 mmol/L (21-31); CHLORIDE 92 mmol/L (97-110); CREATININE 3.13 mg/dl (0.61-1.24); GLUCOSE 74 mg/dl (70-220); LIPASE 49 U/L (23-300); SODIUM 139 mmol/L (135-144); TOTAL PROTEIN 9.1 g/dl (6.1-8.1)
[2018-09-03] MEDS: ONDANSETRON (ODT) 4 MG TAB ODT (05:32)
[2018-09-03] MEDS: HYDROCODONE/APAP (5/325) TAB PO ×2 (05:33→10:11)
[2018-09-03 06:25] LABS: INR 1.14; PROTIME 14.7 Sec (11.9-14.9); PT RATIO 1.1
[2018-09-03 06:26] LABS: PARTIAL THROMBOPLASTIN TIME 41.1 Sec (23.0-35.0)
[2018-09-03] MEDS: LIDOCAINE 1% (MPF) 5 ML VIAL (09:28)
== END 2018-09-03 12:10 | disposition home or self-care (01) ==
LOC: E/R 02:43
DX: R18.8 Other ascites (principal); D64.9 Anemia, unspecified; I13.2 Hypertensive heart and chronic kidney disease with heart failure and with stage 5 chronic kidney disease, or end stage renal disease; I50.9 Heart failure, unspecified; N18.6 End stage renal disease; Z99.2 Dependence on renal dialysis; Z79.82 Long term (current) use of aspirin
CPT/HCPCS: 36415; 76700; 80053; 83690; 85025; 85610; 85730; 99285-25

== ENCOUNTER 2018-10-20 10:30 | Emergency (ER) | payer BC, OTHER ==
[2018-10-20] MEDS ORDERED: SOD CHLORIDE 0.9% 1,000 ML IV (11:32)
[2018-10-20 11:59] LABS: ADD MAN DIFF? NO
[2018-10-20] MEDS: ONDANSETRON 4 MG INJ IV (12:01)
[2018-10-20] MEDS: morphine 4 MG/ML VIAL IV (12:01)
[2018-10-20 12:09] LABS: BASOPHIL # 0.1 10^3/ul (0.0-0.1); BASOPHILS % 0.8 % (0.0-2.0); EOSINOPHILS # 0.1 10^3/ul (0.0-0.5); EOSINOPHILS % 2.4 % (0.0-7.0); HEMATOCRIT 36.1 % (42.0-52.0); HEMOGLOBIN 11.2 g/dl (14.0-18.0); LYMPHOCYTES # 0.8 10^3/ul (0.8-2.9); MEAN CORPUSCULAR HEMOGLOBIN 32.3 pg (29.0-33.0); MEAN PLATELET VOLUME 9.5 fl (7.4-10.4); MONOCYTE # 0.7 10^3/ul (0.3-0.9); MONOCYTES % 11.5 % (0.0-11.0); NEUTROPHIL # 4.3 10^3/ul (1.6-7.5); NEUTROPHILS % 71.8 % (39.0-77.0); PLATELET COUNT 182 10^3/UL (140-415); RED BLOOD COUNT 3.47 10^6/ul (4.70-6.10); RED CELL DISTRIBUTION WIDTH 15.3 % (11.5-14.5)
[2018-10-20 12:09] LABS: WHITE BLOOD COUNT 5.9 10^3/ul (4.8-10.8)
[2018-10-20 12:19] LABS: ALANINE AMINOTRANSFERASE 21 IU/L (13-69); ALBUMIN 4.1 g/dl (3.3-4.9); ALBUMIN/GLOBULIN RATIO 0.77; ALKALINE PHOSPHATASE 273 IU/L (42-121); AMYLASE 63 U/L (11-123); ANION GAP 14 (5-13); ASPARTATE AMINO TRANSFERASE 24 IU/L (15-46); BILIRUBIN,INDIRECT 0.4 mg/dl (0-1.1); BILIRUBIN,TOTAL 0.4 mg/dl (0.2-1.3); BLOOD UREA NITROGEN 24 mg/dl (7-20); CALCIUM 9.4 mg/dl (8.4-10.2); CARBON DIOXIDE 36 mmol/L (21-31); CHLORIDE 89 mmol/L (97-110); CREATININE 4.06 mg/dl (0.61-1.24); GLUCOSE 94 mg/dl (70-220); LIPASE 39 U/L (23-300); POTASSIUM 3.7 mmol/L (3.5-5.1); SODIUM 139 mmol/L (135-144); TOTAL PROTEIN 9.4 g/dl (6.1-8.1)
[2018-10-20 12:22] LABS: INR 1.16; PROTIME 14.9 Sec (11.9-14.9); PT RATIO 1.2
[2018-10-20 12:24] LABS: PARTIAL THROMBOPLASTIN TIME 40.5 Sec (23.0-35.0)
[2018-10-20 12:31] LABS: TROPONIN-I 0.026 ng/ml (0.000-0.120)
[2018-10-20] MEDS: LIDOCAINE 1% (MPF) 5 ML VIAL (13:53)
== END 2018-10-20 15:02 | disposition home or self-care (01) ==
LOC: E/R 10:30
DX: K70.31 Alcoholic cirrhosis of liver with ascites (principal); R40.2142 Coma scale, eyes open, spontaneous, at arrival to emergency department; R40.2252 Coma scale, best verbal response, oriented, at arrival to emergency department; R40.2362 Coma scale, best motor response, obeys commands, at arrival to emergency department; I11.0 Hypertensive heart disease with heart failure; I50.9 Heart failure, unspecified; I12.0 Hypertensive chronic kidney disease with stage 5 chronic kidney disease or end stage renal disease; N18.6 End stage renal disease; Z99.2 Dependence on renal dialysis; Z79.82 Long term (current) use of aspirin
CPT/HCPCS: 80053; 82150; 83690; 84484; 85025; 85610; 85730; 93005; 96374; 96375; 99285-25

== ENCOUNTER 2018-11-07 18:40 | Inpatient (IN) | payer BC ==
[2018-11-07] MEDS: ONDANSETRON 4 MG INJ IV (19:51)
[2018-11-07] MEDS: morphine 2 MG INJ IV ×2 (19:52→23:52)
[2018-11-07 20:00] LABS: ADD MAN DIFF? NO
[2018-11-07 20:02] LABS: BASOPHIL # 0.1 10^3/ul (0.0-0.1); BASOPHILS % 1.3 % (0.0-2.0); EOSINOPHILS # 0.2 10^3/ul (0.0-0.5); EOSINOPHILS % 2.7 % (0.0-7.0); HEMATOCRIT 34.6 % (42.0-52.0); HEMOGLOBIN 10.9 g/dl (14.0-18.0); LYMPHOCYTES # 0.9 10^3/ul (0.8-2.9); LYMPHOCYTES % 13.9 % (15.0-51.0); MEAN CORPUSCULAR HEMOGLOBIN 31.3 pg (29.0-33.0); MEAN CORPUSCULAR HGB CONC 31.5 g/dl (32.0-37.0); MEAN CORPUSCULAR VOLUME 99.4 fl (82.0-101.0); MEAN PLATELET VOLUME 9.3 fl (7.4-10.4); MONOCYTE # 0.7 10^3/ul (0.3-0.9); MONOCYTES % 10.5 % (0.0-11.0); NEUTROPHIL # 4.4 10^3/ul (1.6-7.5); NEUTROPHILS % 71.1 % (39.0-77.0); PLATELET COUNT 265 10^3/UL (140-415); RED BLOOD COUNT 3.48 10^6/ul (4.70-6.10); RED CELL DISTRIBUTION WIDTH 16.2 % (11.5-14.5)
[2018-11-07 20:02] LABS: WHITE BLOOD COUNT 6.2 10^3/ul (4.8-10.8)
[2018-11-07 20:21] LABS: ALANINE AMINOTRANSFERASE 17 IU/L (13-69); ALBUMIN 3.9 g/dl (3.3-4.9); ALBUMIN/GLOBULIN RATIO 0.72; ALKALINE PHOSPHATASE 330 IU/L (42-121); ANION GAP 12 (5-13); ASPARTATE AMINO TRANSFERASE 54 IU/L (15-46); BILIRUBIN,INDIRECT 0.5 mg/dl (0-1.1); BILIRUBIN,TOTAL 0.5 mg/dl (0.2-1.3); BLOOD UREA NITROGEN 23 mg/dl (7-20); CALCIUM 8.8 mg/dl (8.4-10.2); CARBON DIOXIDE 36 mmol/L (21-31); CHLORIDE 88 mmol/L (97-110); CREATININE 3.38 mg/dl (0.61-1.24); GLUCOSE 101 mg/dl (70-220); LIPASE 71 U/L (23-300); POTASSIUM 3.9 mmol/L (3.5-5.1); SODIUM 136 mmol/L (135-144); TOTAL PROTEIN 9.3 g/dl (6.1-8.1)
[2018-11-07] MEDS: SOD CHLORIDE 0.9% 100 ML (21:30)
[2018-11-07] MEDS: IODIXANOL LOCM 100 ML BTL (21:30)
[2018-11-08] MEDS ORDERED: ONDANSETRON 4 MG INJ IV ×2 (00:30→02:00)
[2018-11-08] MEDS ORDERED: ACETAMINOPHEN 325 MG TAB PO ×2 (00:30→02:00)
[2018-11-08] MEDS ORDERED: ALBUTEROL/IPRATROPIUM (NEB) 3 ML AMP HHN (02:00)
[2018-11-08] MEDS ORDERED: NACL 0.9% 3 ML SYG IV (02:00)
[2018-11-08 05:23] LABS: ADD MAN DIFF? NO
[2018-11-08 05:38] LABS: BASOPHIL # 0.1 10^3/ul (0.0-0.1); BASOPHILS % 1.2 % (0.0-2.0); EOSINOPHILS # 0.2 10^3/ul (0.0-0.5); EOSINOPHILS % 3.6 % (0.0-7.0); HEMATOCRIT 33.2 % (42.0-52.0); HEMOGLOBIN 10.2 g/dl (14.0-18.0); LYMPHOCYTES # 0.8 10^3/ul (0.8-2.9); LYMPHOCYTES % 12.9 % (15.0-51.0); MEAN CORPUSCULAR HEMOGLOBIN 30.9 pg (29.0-33.0); MEAN CORPUSCULAR HGB CONC 30.7 g/dl (32.0-37.0); MEAN CORPUSCULAR VOLUME 100.6 fl (82.0-101.0); MEAN PLATELET VOLUME 9.1 fl (7.4-10.4); MONOCYTE # 0.8 10^3/ul (0.3-0.9); MONOCYTES % 12.4 % (0.0-11.0); NEUTROPHIL # 4.2 10^3/ul (1.6-7.5); NEUTROPHILS % 69.6 % (39.0-77.0); PLATELET COUNT 255 10^3/UL (140-415)
[2018-11-08 05:38] LABS: WHITE BLOOD COUNT 6.1 10^3/ul (4.8-10.8)
[2018-11-08] MEDS: morphine 4 MG/ML VIAL IV (05:41)
[2018-11-08 06:16] LABS: ALANINE AMINOTRANSFERASE 18 IU/L (13-69); ALBUMIN 3.3 g/dl (3.3-4.9); ALBUMIN/GLOBULIN RATIO 0.68; ANION GAP 9 (5-13); ASPARTATE AMINO TRANSFERASE 27 IU/L (15-46); BILIRUBIN,INDIRECT 0.4 mg/dl (0-1.1); BILIRUBIN,TOTAL 0.4 mg/dl (0.2-1.3); BLOOD UREA NITROGEN 24 mg/dl (7-20); CARBON DIOXIDE 38 mmol/L (21-31); CHLORIDE 89 mmol/L (97-110); CHOL/HDL RATIO 7.4 RATIO; CHOLESTEROL 141 mg/dl (100-200); CREATININE 3.93 mg/dl (0.61-1.24); GLUCOSE 85 mg/dl (70-220); HDL CHOLESTEROL 19 mg/dl (31-75); LDL CHOLESTEROL,CALCULATED 98 mg/dl; MAGNESIUM 2.2 mg/dl (1.7-2.5); PHOSPHORUS 3.5 mg/dl (2.5-4.9); SODIUM 136 mmol/L (135-144); TOTAL PROTEIN 8.1 g/dl (6.1-8.1); TRIGLYCERIDES 120 mg/dl (0-149)
[2018-11-08 06:17] LABS: ALKALINE PHOSPHATASE 255 IU/L (42-121); CALCIUM 8.4 mg/dl (8.4-10.2)
[2018-11-08 06:41] LABS: INR 1.12; PROTIME 14.5 Sec (11.9-14.9); PT RATIO 1.1
[2018-11-08 06:42] LABS: PARTIAL THROMBOPLASTIN TIME 49.1 Sec (23.0-35.0)
[2018-11-08] MEDS ORDERED: MIDODRINE 5 MG TAB PO (09:00)
[2018-11-08] MEDS: MULTIVIT/CA CARB/B CMPLX/FA TAB PO (09:22)
[2018-11-08] MEDS: MIDODRINE 10 MG TABLET PO ×3 (09:22→18:18)
[2018-11-08] MEDS: CALCIUM ACETATE 667 MG CAP PO ×3 (09:23→17:45)
[2018-11-08] MEDS: ISOSORBIDE DINITRATE 10 MG TAB PO ×4 (09:23→21:00)
[2018-11-08] MEDS: PANTOPRAZOLE SODIUM 20 MG TABEC PO ×2 (09:23→18:14)
[2018-11-08 11:40] LABS: HEMOGLOBIN A1C 4.8 % (0-5.9)
[2018-11-08] MEDS: LIDOCAINE 1% (MPF) 5 ML VIAL (13:26)
[2018-11-08] MEDS: HYDROCODONE/APAP (5/325) TAB PO (18:18)
[2018-11-09 05:18] LABS: ADD MAN DIFF? NO
[2018-11-09 05:22] LABS: BASOPHIL # 0.1 10^3/ul (0.0-0.1); BASOPHILS % 1.4 % (0.0-2.0); EOSINOPHILS # 0.2 10^3/ul (0.0-0.5); EOSINOPHILS % 3.7 % (0.0-7.0); HEMATOCRIT 32.4 % (42.0-52.0); LYMPHOCYTES # 0.9 10^3/ul (0.8-2.9); LYMPHOCYTES % 14.1 % (15.0-51.0); MEAN CORPUSCULAR HGB CONC 30.9 g/dl (32.0-37.0); MEAN CORPUSCULAR VOLUME 100.3 fl (82.0-101.0); MEAN PLATELET VOLUME 9.3 fl (7.4-10.4); MONOCYTE # 0.7 10^3/ul (0.3-0.9); MONOCYTES % 10.7 % (0.0-11.0); NEUTROPHIL # 4.5 10^3/ul (1.6-7.5); NEUTROPHILS % 69.9 % (39.0-77.0); PLATELET COUNT 247 10^3/UL (140-415); RED BLOOD COUNT 3.23 10^6/ul (4.70-6.10); RED CELL DISTRIBUTION WIDTH 15.9 % (11.5-14.5)
[2018-11-09 05:22] LABS: WHITE BLOOD COUNT 6.5 10^3/ul (4.8-10.8)
[2018-11-09] MEDS: PANTOPRAZOLE SODIUM 20 MG TABEC PO ×2 (05:27→18:39)
[2018-11-09] MEDS: MIDODRINE 10 MG TABLET PO ×3 (05:27→18:33)
[2018-11-09 06:27] LABS: ANION GAP 13 (5-13); BLOOD UREA NITROGEN 31 mg/dl (7-20); CALCIUM 7.9 mg/dl (8.4-10.2); CARBON DIOXIDE 34 mmol/L (21-31); CHLORIDE 89 mmol/L (97-110); CREATININE 4.63 mg/dl (0.61-1.24); GLUCOSE 89 mg/dl (70-220); MAGNESIUM 2.2 mg/dl (1.7-2.5); PHOSPHORUS 4.6 mg/dl (2.5-4.9); POTASSIUM 4.4 mmol/L (3.5-5.1); SODIUM 136 mmol/L (135-144)
[2018-11-09] MEDS: MULTIVIT/CA CARB/B CMPLX/FA TAB PO (09:15)
[2018-11-09] MEDS: CALCIUM ACETATE 667 MG CAP PO ×3 (09:15→18:33)
[2018-11-09] MEDS: ISOSORBIDE DINITRATE 10 MG TAB PO ×4 (09:15→20:53)
[2018-11-09] MEDS: HYDROCODONE/APAP (5/325) TAB PO (09:57)
[2018-11-09 10:15] LABS: HEPATITIS B SURFACE ANTIGEN NEGATIVE (NEGATIVE)
[2018-11-09] MEDS: IOHEXOL 14.3 MG(I)/ML (ADULT) BTL PO (17:30)
[2018-11-09 18:20] LABS: ALPHA FETOPROTEIN 1.07 IU/L (0.00-7.21)
[2018-11-09 19:21] LABS: FLD RBC 1000 /uL; FLD WBC 782 /cmm
[2018-11-09 19:31] LABS: FLD TYPE PARACENTHESIS
[2018-11-09 19:31] LABS: FLD CLARITY HAZY; FLD COLOR YELLOW
[2018-11-09 19:40] LABS: FLD PMN% 18.2 %
[2018-11-09 19:41] LABS: FLD MN% 81.8 %
[2018-11-09] MEDS: BISACODYL (EC) 5 MG TAB PO (20:53)
[2018-11-09] MEDS: HEPARIN 5,000 UNIT/1 ML VIAL SC (20:56)
[2018-11-10 05:02] LABS: ADD MAN DIFF? NO
[2018-11-10 05:10] LABS: WHITE BLOOD COUNT 6.6 10^3/ul (4.8-10.8)
[2018-11-10 05:10] LABS: BASOPHIL # 0.1 10^3/ul (0.0-0.1); BASOPHILS % 1.2 % (0.0-2.0); EOSINOPHILS # 0.2 10^3/ul (0.0-0.5); EOSINOPHILS % 2.9 % (0.0-7.0); HEMATOCRIT 31.4 % (42.0-52.0); HEMOGLOBIN 9.9 g/dl (14.0-18.0); LYMPHOCYTES # 1.1 10^3/ul (0.8-2.9); LYMPHOCYTES % 16.9 % (15.0-51.0); MEAN CORPUSCULAR HEMOGLOBIN 31.6 pg (29.0-33.0); MEAN CORPUSCULAR HGB CONC 31.5 g/dl (32.0-37.0); MEAN CORPUSCULAR VOLUME 100.3 fl (82.0-101.0); MEAN PLATELET VOLUME 9.2 fl (7.4-10.4); MONOCYTE # 0.7 10^3/ul (0.3-0.9); MONOCYTES % 10.7 % (0.0-11.0); NEUTROPHIL # 4.5 10^3/ul (1.6-7.5); PLATELET COUNT 249 10^3/UL (140-415); RED BLOOD COUNT 3.13 10^6/ul (4.70-6.10); RED CELL DISTRIBUTION WIDTH 16.2 % (11.5-14.5)
[2018-11-10 05:57] LABS: ALANINE AMINOTRANSFERASE 19 IU/L (13-69); ALBUMIN/GLOBULIN RATIO 0.68; ALKALINE PHOSPHATASE 233 IU/L (42-121); ANION GAP 10 (5-13); ASPARTATE AMINO TRANSFERASE 24 IU/L (15-46); BILIRUBIN,INDIRECT 0.3 mg/dl (0-1.1); BILIRUBIN,TOTAL 0.3 mg/dl (0.2-1.3); BLOOD UREA NITROGEN 24 mg/dl (7-20); CALCIUM 8.1 mg/dl (8.4-10.2); CARBON DIOXIDE 30 mmol/L (21-31); CHLORIDE 97 mmol/L (97-110); CREATININE 4.06 mg/dl (0.61-1.24); GLUCOSE 73 mg/dl (70-220); MAGNESIUM 2.1 mg/dl (1.7-2.5); PHOSPHORUS 4.2 mg/dl (2.5-4.9); POTASSIUM 4.5 mmol/L (3.5-5.1); SODIUM 137 mmol/L (135-144); TOTAL PROTEIN 7.4 g/dl (6.1-8.1)
[2018-11-10] MEDS: PANTOPRAZOLE SODIUM 20 MG TABEC PO ×2 (07:05→18:21)
[2018-11-10] MEDS: MIDODRINE 10 MG TABLET PO ×2 (07:05→13:00)
[2018-11-10] MEDS: HYDROCODONE/APAP (5/325) TAB PO ×2 (07:44→18:23)
[2018-11-10] MEDS: CALCIUM ACETATE 667 MG CAP PO ×3 (07:50→18:21)
[2018-11-10] MEDS: IOHEXOL 14.3 MG(I)/ML (ADULT) BTL PO (09:24)
[2018-11-10] MEDS: MULTIVIT/CA CARB/B CMPLX/FA TAB PO (09:24)
[2018-11-10] MEDS: ISOSORBIDE DINITRATE 10 MG TAB PO ×2 (09:28→13:00)
[2018-11-10] MEDS: SOD CHLORIDE 0.9% 100 ML (11:26)
[2018-11-10] MEDS: IODIXANOL LOCM 100 ML BTL (11:34)
[2018-11-10] MEDS: BISACODYL (EC) 5 MG TAB PO (13:06)
[2018-11-10] MEDS: HEPARIN 5,000 UNIT/1 ML VIAL SC ×4 (14:24→22:55)
[2018-11-10] MEDS: HYDROmorphONE 0.5 MG/0.5 ML SYG IV (15:24)
[2018-11-10] MEDS: HYDROmorphONE 1 MG/ML SYG IV (19:16)
[2018-11-10 21:11] LABS: PARTIAL THROMBOPLASTIN TIME 40.9 Sec (23.0-35.0)
[2018-11-10 21:55] LABS: CARCINOEMBRYONIC ANTIGEN 0.8 ng/ml (0.0-5.0)
[2018-11-10 22:40] LABS: 50/50 PTT IMMED 37.8 Sec
[2018-11-11 04:59] LABS: ADD MAN DIFF? NO
[2018-11-11 05:12] LABS: BASOPHIL # 0.1 10^3/ul (0.0-0.1); BASOPHILS % 1.5 % (0.0-2.0); EOSINOPHILS # 0.2 10^3/ul (0.0-0.5); EOSINOPHILS % 4.2 % (0.0-7.0); HEMATOCRIT 32.8 % (42.0-52.0); HEMOGLOBIN 10.2 g/dl (14.0-18.0); LYMPHOCYTES # 0.9 10^3/ul (0.8-2.9); LYMPHOCYTES % 16.5 % (15.0-51.0); MEAN CORPUSCULAR HEMOGLOBIN 31.4 pg (29.0-33.0); MEAN CORPUSCULAR HGB CONC 31.1 g/dl (32.0-37.0); MEAN CORPUSCULAR VOLUME 100.9 fl (82.0-101.0); MEAN PLATELET VOLUME 9.4 fl (7.4-10.4); MONOCYTE # 0.6 10^3/ul (0.3-0.9); MONOCYTES % 11.6 % (0.0-11.0); NEUTROPHIL # 3.6 10^3/ul (1.6-7.5); NEUTROPHILS % 65.8 % (39.0-77.0); PLATELET COUNT 234 10^3/UL (140-415); RED BLOOD COUNT 3.25 10^6/ul (4.70-6.10); RED CELL DISTRIBUTION WIDTH 16.1 % (11.5-14.5)
[2018-11-11 05:12] LABS: WHITE BLOOD COUNT 5.5 10^3/ul (4.8-10.8)
[2018-11-11 05:40] LABS: ALANINE AMINOTRANSFERASE 19 IU/L (13-69); ALBUMIN 3.1 g/dl (3.3-4.9); ALBUMIN/GLOBULIN RATIO 0.68; ALKALINE PHOSPHATASE 215 IU/L (42-121); ANION GAP 12 (5-13); ASPARTATE AMINO TRANSFERASE 24 IU/L (15-46); BILIRUBIN,INDIRECT 0.2 mg/dl (0-1.1); BILIRUBIN,TOTAL 0.2 mg/dl (0.2-1.3); BLOOD UREA NITROGEN 29 mg/dl (7-20); CARBON DIOXIDE 30 mmol/L (21-31); CHLORIDE 96 mmol/L (97-110); CREATININE 4.97 mg/dl (0.61-1.24); GLUCOSE 80 mg/dl (70-220); POTASSIUM 4.8 mmol/L (3.5-5.1); SODIUM 138 mmol/L (135-144); TOTAL PROTEIN 7.6 g/dl (6.1-8.1)
[2018-11-11] MEDS: PANTOPRAZOLE SODIUM 20 MG TABEC PO (05:49)
[2018-11-11] MEDS: MULTIVIT/CA CARB/B CMPLX/FA TAB PO (09:07)
[2018-11-11] MEDS: CALCIUM ACETATE 667 MG CAP PO ×2 (09:07→15:46)
[2018-11-11] MEDS: HEPARIN 5,000 UNIT/1 ML VIAL SC (09:08)
[2018-11-11] MEDS ORDERED: MAGNESIUM CITRATE 300 ML BTL PO (12:00)
[2018-11-11] MEDS: HYDROCODONE/APAP (5/325) TAB PO (13:13)
[2018-11-11] MEDS: CEFTRIAXONE 2 GM/50 ML (PMX) 50 ML IVPB (15:46)
== END 2018-11-11 18:40 | disposition home health service (06) | DRG 432 ==
LOC: MS1 11-08 00:04 → E/R 18:40 → MS1 11-08 00:53
PROC: 0W9G3ZZ Drainage of Peritoneal Cavity, Percutaneous Approach (ICD-10-PCS; principal; 2018-11-08)
PROC: 5A1D70Z Performance of Urinary Filtration, Intermittent, Less than 6 Hours Per Day (ICD-10-PCS; 2018-11-09)
DX: K70.31 Alcoholic cirrhosis of liver with ascites (principal); N18.6 End stage renal disease; I13.2 Hypertensive heart and chronic kidney disease with heart failure and with stage 5 chronic kidney disease, or end stage renal disease; I50.32 Chronic diastolic (congestive) heart failure; E11.22 Type 2 diabetes mellitus with diabetic chronic kidney disease; I27.20 Pulmonary hypertension, unspecified; B18.2 Chronic viral hepatitis C; D64.9 Anemia, unspecified; K40.20 Bilateral inguinal hernia, without obstruction or gangrene, not specified as recurrent; I48.0 Paroxysmal atrial fibrillation; I95.9 Hypotension, unspecified; Z99.2 Dependence on renal dialysis
CPT/HCPCS: 36415; 71045; 74177; 74178; 80048; 80053; 80061; 82105; 82378; 83036; 83690; 83735; 84100; 85025; 85335; 85610; 85730; 87070; 87081; 87102; 87116; 87340; 88104; 88305; 89051; 90935; 93005; 93306; 96374; 96375; 96376; 99285-25

== ENCOUNTER 2018-12-03 19:59 | Emergency (ER) | payer BC ==
[2018-12-04 01:06] LABS: ADD MAN DIFF? NO
[2018-12-04 01:08] LABS: WHITE BLOOD COUNT 5.3 10^3/ul (4.8-10.8)
[2018-12-04 01:08] LABS: BASOPHIL # 0.1 10^3/ul (0.0-0.1); BASOPHILS % 1.1 % (0.0-2.0); EOSINOPHILS # 0.3 10^3/ul (0.0-0.5); EOSINOPHILS % 5.5 % (0.0-7.0); HEMATOCRIT 37.8 % (42.0-52.0); HEMOGLOBIN 11.5 g/dl (14.0-18.0); LYMPHOCYTES # 1.2 10^3/ul (0.8-2.9); LYMPHOCYTES % 21.8 % (15.0-51.0); MEAN CORPUSCULAR HEMOGLOBIN 32.4 pg (29.0-33.0); MEAN CORPUSCULAR HGB CONC 30.4 g/dl (32.0-37.0); MEAN CORPUSCULAR VOLUME 106.5 fl (82.0-101.0); MEAN PLATELET VOLUME 9.5 fl (7.4-10.4); MONOCYTE # 0.5 10^3/ul (0.3-0.9); MONOCYTES % 9.7 % (0.0-11.0); NEUTROPHIL # 3.3 10^3/ul (1.6-7.5); NEUTROPHILS % 61.7 % (39.0-77.0); PLATELET COUNT 181 10^3/UL (140-415); RED BLOOD COUNT 3.55 10^6/ul (4.70-6.10); RED CELL DISTRIBUTION WIDTH 19.9 % (11.5-14.5)
[2018-12-04 01:26] LABS: ALANINE AMINOTRANSFERASE 39 IU/L (13-69); ALBUMIN 3.9 g/dl (3.3-4.9); ALBUMIN/GLOBULIN RATIO 0.67; ALKALINE PHOSPHATASE 434 IU/L (42-121); ANION GAP 14 (5-13); ASPARTATE AMINO TRANSFERASE 57 IU/L (15-46); BILIRUBIN,INDIRECT 0.4 mg/dl (0-1.1); BILIRUBIN,TOTAL 0.4 mg/dl (0.2-1.3); BLOOD UREA NITROGEN 38 mg/dl (7-20); CALCIUM 9.4 mg/dl (8.4-10.2); CARBON DIOXIDE 35 mmol/L (21-31); CHLORIDE 89 mmol/L (97-110); CREATININE 4.21 mg/dl (0.61-1.24); GLUCOSE 118 mg/dl (70-220); LIPASE 92 U/L (23-300); SODIUM 138 mmol/L (135-144); TOTAL PROTEIN 9.7 g/dl (6.1-8.1)
[2018-12-04 01:27] LABS: INR 1.05; PROTIME 13.8 Sec (11.9-14.9); PT RATIO 1.1
[2018-12-04 01:28] LABS: PARTIAL THROMBOPLASTIN TIME 40.5 Sec (23.0-35.0)
[2018-12-04] MEDS: BISACODYL 10 MG SUPP PR (01:45)
== END 2018-12-04 02:53 | disposition home or self-care (01) ==
LOC: E/R 19:59
DX: R18.8 Other ascites (principal); K59.00 Constipation, unspecified; D64.9 Anemia, unspecified; I11.0 Hypertensive heart disease with heart failure; I50.9 Heart failure, unspecified; Z79.82 Long term (current) use of aspirin
CPT/HCPCS: 36415; 80053; 83690; 85025; 85610; 85730; 93005; 99284-25

== ENCOUNTER 2018-12-04 13:15 | Emergency (ER) | payer BC, OTHER ==
[2018-12-04] MEDS: HYDROCODONE/APAP (5/325) TAB PO (15:25)
[2018-12-04] MEDS: LIDOCAINE 1% (MPF) 5 ML VIAL (17:31)
== END 2018-12-04 18:46 | disposition home or self-care (01) ==
LOC: E/R 13:15
DX: R18.8 Other ascites (principal); I11.0 Hypertensive heart disease with heart failure; I50.9 Heart failure, unspecified; Z79.82 Long term (current) use of aspirin
CPT/HCPCS: 49083; 99285-25

== ENCOUNTER 2018-12-25 11:44 | Emergency (ER) | payer BC ==
[2018-12-25] MEDS: ONDANSETRON 4 MG INJ IV (15:56)
[2018-12-25] MEDS: morphine 4 MG/ML VIAL IV (15:56)
[2018-12-25 15:59] LABS: ADD MAN DIFF? NO
[2018-12-25 16:01] LABS: WHITE BLOOD COUNT 7.6 10^3/ul (4.8-10.8)
[2018-12-25 16:01] LABS: BASOPHILS % 0.5 % (0.0-2.0); EOSINOPHILS # 0.2 10^3/ul (0.0-0.5); EOSINOPHILS % 2.5 % (0.0-7.0); HEMATOCRIT 35.4 % (42.0-52.0); HEMOGLOBIN 10.9 g/dl (14.0-18.0); LYMPHOCYTES # 0.7 10^3/ul (0.8-2.9); LYMPHOCYTES % 9.5 % (15.0-51.0); MEAN CORPUSCULAR HEMOGLOBIN 32.7 pg (29.0-33.0); MEAN CORPUSCULAR HGB CONC 30.8 g/dl (32.0-37.0); MEAN CORPUSCULAR VOLUME 106.3 fl (82.0-101.0); MEAN PLATELET VOLUME 9.1 fl (7.4-10.4); MONOCYTE # 0.6 10^3/ul (0.3-0.9); MONOCYTES % 7.7 % (0.0-11.0); NEUTROPHILS % 79.5 % (39.0-77.0); PLATELET COUNT 170 10^3/UL (140-415); RED BLOOD COUNT 3.33 10^6/ul (4.70-6.10); RED CELL DISTRIBUTION WIDTH 18.1 % (11.5-14.5)
[2018-12-25 16:22] LABS: INR 1.18; PROTIME 15.1 Sec (11.9-14.9); PT RATIO 1.2
[2018-12-25 16:23] LABS: PARTIAL THROMBOPLASTIN TIME 42.3 Sec (23.0-35.0)
[2018-12-25 16:24] LABS: ANION GAP 13 (5-13); BLOOD UREA NITROGEN 51 mg/dl (7-20); CARBON DIOXIDE 32 mmol/L (21-31); CHLORIDE 93 mmol/L (97-110); CREATININE 5.11 mg/dl (0.61-1.24); GLUCOSE 126 mg/dl (70-220); POTASSIUM 3.6 mmol/L (3.5-5.1); SODIUM 138 mmol/L (135-144)
[2018-12-25 16:25] LABS: ALANINE AMINOTRANSFERASE 45 IU/L (13-69); ALBUMIN/GLOBULIN RATIO 0.78; ALKALINE PHOSPHATASE 410 IU/L (42-121); ASPARTATE AMINO TRANSFERASE 63 IU/L (15-46); BILIRUBIN,INDIRECT 0.3 mg/dl (0-1.1); BILIRUBIN,TOTAL 0.3 mg/dl (0.2-1.3); CALCIUM 9.1 mg/dl (8.4-10.2); LIPASE 72 U/L (23-300); MAGNESIUM 2.4 mg/dl (1.7-2.5); TOTAL PROTEIN 9.1 g/dl (6.1-8.1)
[2018-12-25 16:31] LABS: AMMONIA 22 umol/l (9-30)
== END 2018-12-25 18:17 | disposition home or self-care (01) ==
LOC: E/R 11:44
DX: K74.60 Unspecified cirrhosis of liver (principal); R18.8 Other ascites; I13.2 Hypertensive heart and chronic kidney disease with heart failure and with stage 5 chronic kidney disease, or end stage renal disease; I50.9 Heart failure, unspecified; N18.6 End stage renal disease; Z99.2 Dependence on renal dialysis; Z87.891 Personal history of nicotine dependence; Z79.82 Long term (current) use of aspirin
CPT/HCPCS: 36415; 80053; 82140; 83690; 83735; 85025; 85610; 85730; 96374; 96375; 99284-25

== ENCOUNTER 2018-12-26 07:57 | Emergency (ER) | payer SELFPAY, BC ==
[2018-12-26] MEDS: LIDOCAINE 1% (MPF) 5 ML VIAL (11:09)
== END 2018-12-26 11:58 | disposition home or self-care (01) ==
LOC: E/R 07:57
DX: R10.84 Generalized abdominal pain (principal); R18.8 Other ascites; I11.0 Hypertensive heart disease with heart failure; I50.9 Heart failure, unspecified; Z79.82 Long term (current) use of aspirin
CPT/HCPCS: 99285; 99285-25